=== PATIENT | male | born 1960 | race Caucasian/White ===

== ENCOUNTER 2020-04-04 07:42 | Inpatient (IN) | payer BC ==
[2020-04-04] MEDS ORDERED: Sodium Chloride 0.9% 10 ML Syringe FLUSH PRN (08:30)
[2020-04-04] MEDS ORDERED: Sodium Chloride 0.9% 2.5 ML Syringe FLUSH PRN (08:30)
[2020-04-04] MEDS ORDERED: ceFAZolin 2 GM in Premix Bag 1 BAG IV ONE (08:49)
[2020-04-04] MEDS ORDERED: Acetaminophen 500 MG Tab PO ONE (08:50)
[2020-04-04] MEDS ORDERED: oxyCODONE 5 MG Tab PO ONE (08:50)
--- NOTE | 2020-04-04 09:04 | EDM.PDOC ---
ED HPI GENERAL MEDICAL PROBLEM - General Chief Complaint: Lower Extremity Injury/Pain Stated Complaint: BLOOD INFECTION- RIGHT LEG Time Seen by Provider: 04/04/20 07:52 Source of Information: Reports: Patient, Old Records History Limitations: Reports: No Limitations - History of Present Illness INITIAL COMMENTS - FREE TEXT/NARRATIVE: This is a very pleasant 59-year-old male with a past medical history of diabetes mellitus, hypertension, hyperlipidemia, atrial fibrillation on rivaroxaban anticoagulation presenting with concern for possible skin infection. Patient reports a 4-day history of redness and pain to the anterior aspect of the right leg. This was preceded by 1 day history of fever, chills, nausea, vomiting, and myalgias. Patient states that he went to the [facility] where they prescribed him doxycycline. He has taken 5 doses of the doxycycline but states that the area of redness on his right leg is getting worse and spreading. He also reports having multiple pustules, 2 on the right hand, 2 on the left hand, and 2 on each of the legs. He states that he originally had some scratches and abrasions to these areas from his dog. They did not appear spontaneously. He states that he frequently picks at these areas and is concerned that they may be small abscesses. No prior history of endocarditis, IV drug use, or unknown heart murmur. Patient denies history of venous thromboembolism, hemoptysis, recent surgery or immobilization or long travel, history of active malignancy. ROS: A 10-point review of systems was negative, except as noted in the HPI (or in the ROS section of this note). Past medical history: Reviewed, no additional pertinent history. Surgical history: Reviewed in system, no additional pertinent history. Social history: Reviewed in system, no additional pertinent history. Family history: Reviewed in system, no additional pertinent history. PHYSICAL EXAM Vital signs reviewed. Nursing notes reviewed. Constitutional: Awake, alert, non-distressed. Head: Normocephalic, atraumatic. Eyes: EOMI, conjunctiva normal, no discharge, no scleral icterus. Ears, Nose, Throat: External ears and nose normal, moist oral mucosa. Cardiovascular: 2+ radial pulse, capillary refill less than 2 seconds. Pulmonary: normal work of breathing, no accessory muscle use. Abdomen/GI: Soft, nontender, nondistended, no guarding or rigidity, no masses. Musculoskeletal: No deformities. Integumentary: Appropriate color for ethnicity, warm, dry, no pallor or ja undice, no rash. The right lower leg demonstrates an area of erythema, warmth, and tenderness concerning for cellulitis. There are multiple small pustules, 2 on each leg and 2 on each hand, these appear to be draining spontaneously. Neurologic: Alert, answering questions appropriately, normal speech, no facial droop, moving all extremities well. Psychiatric: Appropriate mood and affect, normal thought process. This patient was seen and evaluated during the 2019 SARS-CoV-2 novel coronavirus pandemic period. Community viral transmission is ongoing at time of this encounter and the emergency department is operating under pandemic response procedures. Right Lower Leg Pain Score (Numeric/FACES): 10 - Related Data Allergies Allergy/AdvReac Type Severity Reaction Status Date / Time No Known Allergies Allergy Verified 04/04/20 12:38 Home Meds: Home Meds Amiodarone [Cordarone] 200 mg PO DAILY 04/04/20 [History] Chlorthalidone 1 tab PO DAILY 04/04/20 [History] Doxycycline Hyclate 1 tab PO DAILY 04/04/20 [History] Metoprolol Succinate 100 mg PO DAILY 04/04/20 [History] Rivaroxaban [Xarelto] 20 mg PO DAILY 04/04/20 [History] atorvaSTATin [Lipitor] 1 tab PO DAILY 04/04/20 [History] lisinopriL [Lisinopril] 40 mg PO DAILY 04/04/20 [History] metFORMIN HCl [Metformin HCl] 1,000 mg PO DAILY 04/04/20 [History] Past Medical History HEENT History: Reports: Cataract Cardiovascular History: Reports: Afib, Hypertension Musculoskeletal History: Reports: Arthritis Endocrine/Metabolic History: Reports: Diabetes, Type II, Obesity/BMI 30+ Dermatologic History: Reports: Cellulitis - Infectious Disease History Infectious Disease History: Reports: Chicken Pox, Influenza Social & Family History - Tobacco Use Tobacco Use Status *Q: Current Some Day Tobacco User Years of Tobacco use: 25 Packs/Tins Daily: 1 - Caffeine Use Caffeine Use: Reports: Coffee - Recreational Drug Use Recreational Drug Use: No Review of Systems - Review of Systems Review Of Systems: See Below ED EXAM, GENERAL - Physical Exam Exam: See Below Course - Vital Signs Text/Narrative:: 59-year-old male presenting with worsening right lower extremity redness, swelling, pain, and multiple pustules. Patient hemodynamically stable, afebrile, well-appearing, looks nontoxic. Differential diagnosis includes but is not limited to: Cellulitis, sepsis, DVT, multiple abscesses, endocarditis, and many others. 903: Ordered blood cultures, labs, Tylenol, oxycodone, IV antibiotics, and DVT ultrasound study of the right lower extremity. Anticipate admission to the hospital for worsening cellulitis symptoms. 1018: Right lower extremity DVT ultrasound study is negative. Labs show mild leukocytosis, normal hemoglobin, mild thrombocytopenia. INR and lactate are normal. Metabolic panel shows creatinine elevated at 2.0, no prior available for comparison. BUN to creatinine ratio suggests prerenal azotemia. Glucose 233 with normal carbon dioxide. AST and ALT mildly elevated at 45 and 72. Troponin is negative. Patient given p.o. acetaminophen and oxycodone, Ancef, vancomycin, 1 L lactated Ringer's. Given multiple pustules I was somewhat co ncerned for endocarditis but the patient states there is a history of antecedent wounds and I do not detect a cardiac murmur by auscultation. We did obtain blood cultures. 1111: Covid testing is negative. Given worsening of symptoms, patient will need to be admitted the hospital for outpatient treatment failure of right lower extremity cellulitis with elevated creatinine. I spoke with the hospitalist Dr. Vargas who agrees to admit. Last Recorded V/S: Last Vital Signs Temp 36.3 C 04/04/20 12:40 Pulse 63 04/04/20 12:40 Resp 18 04/04/20 12:40 BP 112/42 L 04/04/20 12:40 Pulse Ox 97 04/04/20 12:40 - Orders/Labs/Meds Orders: Active Orders 24 hr Category Date Time Status CULTURE BLOOD [BC] Stat Lab 04/04/20 08:30 Received CULTURE BLOOD [BC] Stat Lab 04/04/20 08:50 Received Blood Culture x2 Reflex Set [OM.PC] Stat Oth 04/04/20 08:30 Ordered Medication Orders Acetaminophen (Tylenol) 650 mg PO Q4H PRN PRN Reason: Pain (Mild 1-3)/fever Amiodarone HCl (Cordarone) 200 mg PO DAILY [facility] Atorvastatin Calcium (Lipitor) 20 mg PO DAILY [facility] Dextrose/Water (Dextrose 50% In Water) 50 ml IV ASDIRECTED PRN PRN Reason: Hypoglycemia Docusate Sodium (Colace) 100 mg PO BID PRN PRN Reason: Constipation Folic Acid (Folic Acid) 1 mg PO BEDTIME [facility] Glucagon (Glucagen) 1 mg IM ASDIRECTED PRN PRN Reason: Hypoglycemia Lactated Ringer's (Ringers, Lactated) 1,000 mls @ 125 mls/hr IV Q8H [facility] Last Admin: 04/04/20 12:58 Dose: 125 mls/hr Documented by: CELESTINAHR Vancomycin HCl 2 gm/ Premix 400 mls @ 200 mls/hr IV Q24H [facility] Piperacillin Sod/Tazobactam (Sod 3.375 gm/ Sodium Chloride) 100 mls @ 200 mls/hr IV Q6H [facility] Insulin Aspart (Novolog) 0 unit SUBCUT TIDAC [facility]; Protocol Last Admin: 04/04/20 13:12 Dose: 1 units Documented by: PREMA Lorazepam (Ativan) 0 mg IVPUSH Q4H PRN; Protocol PRN Reason: CIWAA Metoprolol Succinate (Toprol Xl) 100 mg PO DAILY [facility] Morphine Sulfate (Morphine) 2 mg IVPUSH Q2H PRN PRN Reason: Pain (severe 7-10) Ondansetron HCl (Zofran) 4 mg IVPUSH Q4H PRN PRN Reason: Nausea Oxycodone HCl (Oxycodone) 10 mg PO Q4H PRN PRN Reason: Pain (moderate 4-6) Last Admin: 04/04/20 13:13 Dose: 10 mg Documented by: PREMA Rivaroxaban (Xarelto) 20 mg PO WITHDINNER [facility] Sodium Chloride (Saline Flush) 2.5 ml FLUSH ASDIRECTED PRN PRN Reason: Keep Vein Open Thiamine HCl (Vitamin B-1) 100 mg PO BEDTIME [facility] Vancomycin HCl (Pharmacy To Dose - Vancomycin) 1 dose .XX ASDIRECTED [facility] Labs: Laboratory Tests 04/04/20 04/04/20 04/04/20 Range/Units 08:30 08:30 08:30 WBC 11.98 H (4.0-11.0) K/uL RBC 5.13 (4.50-5.90) M/uL Hgb 16.1 (13.0-17.0) g/dL Hct 47.3 (38.0-50.0) % MCV 92.2 (80.0-98.0) fL MCH 31.4 (27.0-32.0) pg MCHC 34.0 (31.0-37.0) g/dL RDW Std Deviation 43.5 (28.0-62.0) fl RDW Coeff of Hilda 13 (11.0-15.0) % Plt Count 138 L (150-400) K/uL MPV 10.30 (7.40-12.00) fL Neut % (Auto) 77.6 (48.0-80.0) % Lymph % (Auto) 10.9 L (16.0-40.0) % Wallace % (Auto) 11.0 (0.0-15.0) % Eos % (Auto) 0.4 (0.0-7.0) % Baso % (Auto) 0.1 (0.0-1.5) % Neut # (Auto) 9.3 H (1.4-5.7) K/uL Lymph # (Auto) 1.3 (0.6-2.4) K/uL Wallace # (Auto) 1.3 H (0.0-0.8) K/uL Eos # (Auto) 0.1 (0.0-0.7) K/uL Baso # (Auto) 0.0 (0.0-0.1) K/uL Nucleated RBC % 0.0 /100WBC Nucleated RBCs # 0 K/uL INR 1.10 Lactate 1.3 (0.20-2.00) mmol/L Sodium (136-148) mmol/L Potassium (3.5-5.1) mmol/L Chloride (98-107) mmol/L Carbon Dioxide (21.0-32.0) mmol/L BUN (7.0-18.0) mg/dL Creatinine (0.8-1.3) mg/dL Est Cr Clr Drug Dosing mL/min Estimated GFR (MDRD) ml/min Glucose (74-106) mg/dL Hemoglobin A1c (4.5 - 6.2) % Calcium (8.5-10.1) mg/dL Total Bilirubin (0.2-1.0) mg/dL AST (15-37) IU/L ALT (14-63) IU/L Alkaline Phosphatase (46-116) U/L Troponin I (0.000-0.056) ng/mL Total Protein (6.4-8.2) g/dL Albumin (3.4-5.0) g/dL Globulin (2.6-4.0) g/dL Albumin/Globulin Ratio (0.9-1.6) SARS-CoV-2 RNA (GIANLUCA) (NEGATIVE) 04/04/20 04/04/20 04/04/20 Range/Units 08:30 08:30 09:55 WBC (4.0-11.0) K/uL RBC (4.50-5.90) M/uL Hgb (13.0-17.0) g/dL Hct (38.0-50.0) % MCV (80.0-98.0) fL MCH (27.0-32.0) pg MCHC (31.0-37.0) g/dL RDW Std Deviation (28.0-62.0) fl RDW Coeff of Hilda (11.0-15.0) % Plt Count (150-400) K/uL MPV (7.40-12.00) fL Neut % (Auto) (48.0-80.0) % Lymph % (Auto) (16.0-40.0) % Wallace % (Auto) (0.0-15.0) % Eos % (Auto) (0.0-7.0) % Baso % (Auto) (0.0-1.5) % Neut # (Auto) (1.4-5.7) K/uL Lymph # (Auto) (0.6-2.4) K/uL Wallace # (Auto) (0.0-0.8) K/uL Eos # (Auto) (0.0-0.7) K/uL Baso # (Auto) (0.0-0.1) K/uL Nucleated RBC % /100WBC Nucleated RBCs # K/uL INR Lactate (0.20-2.00) mmol/L Sodium 135 L (136-148) mmol/L Potassium 3.8 (3.5-5.1) mmol/L Chloride 99 (98-107) mmol/L Carbon Dioxide 21.2 (21.0-32.0) mmol/L BUN 44 H (7.0-18.0) mg/dL Creatinine 2.0 H (0.8-1.3) mg/dL Est Cr Clr Drug Dosing 42.57 mL/min Estimated GFR (MDRD) 34.1 ml/min Glucose 233 H (74-106) mg/dL Hemoglobin A1c 7.3 H (4.5 - 6.2) % Calcium 9.7 (8.5-10.1) mg/dL Total Bilirubin 1.0 (0.2-1.0) mg/dL AST 45 H (15-37) IU/L ALT 72 H (14-63) IU/L Alkaline Phosphatase 94 (46-116) U/L Troponin I < 0.050 (0.000-0.056) ng/mL Total Protein 8.5 H (6.4-8.2) g/dL Albumin 3.4 (3.4-5.0) g/dL Globulin 5.1 H (2.6-4.0) g/dL Albumin/Globulin Ratio 0.7 L (0.9-1.6) SARS-CoV-2 RNA (GIANLUCA) NEGATIVE (NEGATIVE) Meds: Medications Generic Name Dose Route Start Last Admin Trade Name Freq PRN Reason Stop Dose Admin Acetaminophen 650 mg 04/04/20 12:30 Tylenol PO Q4H PRN Pain (Mild 1-3)/fever Amiodarone HCl 200 mg 04/05/20 09:00 Cordarone PO DAILY [facility] Atorvastatin Calcium 20 mg 04/05/20 09:00 Lipitor PO DAILY [facility] Dextrose/Water 50 ml 04/04/20 12:58 Dextrose 50% In Water IV ASDIRECTED PRN Hypoglycemia Docusate Sodium 100 mg 04/04/20 12:31 Colace PO BID PRN Constipation Folic Acid 1 mg 04/04/20 21:00 Folic Acid PO BEDTIME [facility] Glucagon 1 mg 04/04/20 12:58 Glucagen IM ASDIRECTED PRN Hypoglycemia Lactated Ringer's 1,000 mls @ 125 mls/hr 04/04/20 12:30 04/04/20 12:58 Ringers, Lactated IV 125 mls/hr Q8H [facility] Administration Vancomycin HCl 2 gm/ Premix 400 mls @ 200 mls/hr 04/05/20 13:15 IV Q24H [facility] Piperacillin Sod/Tazobactam 100 mls @ 200 mls/hr 04/04/20 15:00 Sod 3.375 gm/ Sodium Chloride IV Q6H [facility] Insulin Aspart 0 unit 04/04/20 12:59 04/04/20 13:12 Novolog SUBCUT 1 units TIDAC [facility] Administration Protocol Lorazepam 0 mg 04/04/20 12:58 Ativan IVPUSH Q4H PRN CIWAA Protocol Metoprolol Succinate 100 mg 04/05/20 09:00 Toprol Xl PO DAILY [facility] Morphine Sulfate 2 mg 04/04/20 12:30 Morphine IVPUSH Q2H PRN Pain (severe 7-10) Ondansetron HCl 4 mg 04/04/20 12:31 Zofran IVPUSH Q4H PRN Nausea Oxycodone HCl 10 mg 04/04/20 12:58 04/04/20 13:13 Oxycodone PO 10 mg Q4H PRN Administration Pain (moderate 4-6) Rivaroxaban 20 mg 04/05/20 17:30 Xarelto PO WITHDINNER [facility] Sodium Chloride 2.5 ml 04/04/20 12:30 Saline Flush FLUSH ASDIRECTED PRN Keep Vein Open Thiamine HCl 100 mg 04/04/20 21:00 Vitamin B-1 PO BEDTIME [facility] Vancomycin HCl 1 dose 04/04/20 12:45 Pharmacy To Dose - Vancomycin .XX ASDIRECTED [facility] Discontinued Medications Generic Name Dose Route Start Last Admin Trade Name Freq PRN Reason Stop Dose Admin Acetaminophen 1,000 mg 04/04/20 08:50 04/04/20 09:42 Tylenol Extra Strength PO 04/04/20 08:51 1,000 mg ONETIME ONE Administration Cefazolin Sodium/Dextrose 2 gm 50 mls @ 100 mls/hr 04/04/20 08:49 04/04/20 09:45 / Premix IV 04/04/20 09:18 100 mls/hr ONETIME ONE Administration Lactated Ringer's 1,000 mls @ 999 mls/hr 04/04/20 09:20 04/04/20 09:45 Ringers, Lactated IV 04/04/20 10:20 999 mls/hr .BOLUS ONE Administration Vancomycin HCl 2 gm/ Premix 400 mls @ 200 mls/hr 04/04/20 10:30 04/04/20 12:59 IV 04/04/20 12:29 200 mls/hr NOW ONE Administration Piperacillin Sod/Tazobactam 100 mls @ 200 mls/hr 04/04/20 12:45 04/04/20 14:08 Sod 3.375 gm/ Sodium Chloride IV Not Given Q6H [facility] Oxycodone HCl 10 mg 04/04/20 08:50 04/04/20 09:42 Oxycodone PO 04/04/20 08:51 10 mg ONETIME ONE Administration Oxycodone HCl 5 mg 04/04/20 12:30 Oxycodone PO Q4H PRN Pain (moderate 4-6) Sodium Chloride 10 ml 04/04/20 08:30 04/04/20 09:51 Saline Flush FLUSH 10 ml ASDIRECTED PRN Administration Keep Vein Open Sodium Chloride 2.5 ml 04/04/20 08:30 04/04/20 09:51 Saline Flush FLUSH 2.5 ml ASDIRECTED PRN Administration Keep Vein Open Vancomycin HCl 1 dose 04/04/20 08:49 Pharmacy To Dose - Vancomycin .XX 04/04/20 08:50 ONETIME ONE Departure - Departure Time of Disposition: 10:17 Disposition: Admitted As Inpatient 64 Condition: Good Clinical Impression: Cellulitis of right leg, Elevated serum creatinine - Discharge Information Sepsis Event Note (ED) - Evaluation Sepsis Screening Result: Possible Sepsis Risk - Focused Exam Vital Signs: Vital Signs Temp Pulse Resp BP Pulse Ox 04/04/20 08:08 35.1 C L 91 20 128/85 95 - My Orders Last 24 Hours: My Active Orders 04/04/20 08:30 CULTURE BLOOD [BC] Stat Blood Culture x2 Reflex Set [OM.PC] Stat 04/04/20 08:50 CULTURE BLOOD [BC] Stat - Assessment/Plan Last 24 Hours: My Active Orders 04/04/20 08:30 CULTURE BLOOD [BC] Stat Blood Culture x2 Reflex Set [OM.PC] Stat 04/04/20 08:50 CULTURE BLOOD [BC] Stat
[2020-04-04 09:16] LABS: BLOOD UREA NITROGEN,BUN 44 mg/dL (7.0-18.0); CARBON DIOXIDE,CO2 21.2 mmol/L (21.0-32.0); CHLORIDE,CL 99 mmol/L (98-107); GLUCOSE RANDOM 233 mg/dL (74-106); POTASSIUM,K 3.8 mmol/L (3.5-5.1); SODIUM,NA 135 mmol/L (136-148)
[2020-04-04] MEDS ORDERED: Lactated Ringers 1,000 ML IV ONE (09:20)
--- NOTE | 2020-04-04 10:08 | US ---
INDICATION: RT LOWER EXT REDNESS/SWELLING TECHNIQUE: Ultrasound venous duplex right lower extremity. COMPARISON: None. FINDINGS: The right common femoral, superficial femoral, deep femoral, popliteal, posterior tibial, and greater saphenous veins are fully compressible with normal waveforms. IMPRESSION: Normal ultrasound of the right lower extremity veins. Dictated by: Ector Washington MD @ 04/04/2020 10:06:24 (Electronically Signed)
[2020-04-04] MEDS ORDERED: VANCOMYCIN IV ONE ×4 (10:30→13:45)
[2020-04-04] MEDS ORDERED: WATER FOR INJ IV ONE ×4 (10:30→13:45)
[2020-04-04] MEDS ORDERED: Morphine 2 MG/ML SYRINGE IVPUSH PRN (12:30)
[2020-04-04] MEDS ORDERED: oxyCODONE 5 MG Tab PO PRN (12:30)
[2020-04-04] MEDS ORDERED: Acetaminophen 325 MG Tab PO PRN (12:30)
[2020-04-04] MEDS ORDERED: Docusate Sodium 100 MG Cap PO PRN (12:31)
[2020-04-04] MEDS ORDERED: Ondansetron 4 MG/2 ML SDV IVPUSH PRN (12:31)
--- NOTE | 2020-04-04 12:38 | PCM.HP.2 ---
H&P History of Present Illness - General Date of Service: 04/04/20 Admit Problem/Dx: Admission Diagnosis/Problem Admission Diagnosis/Problem Cellulitis Source of Information: Patient History Limitations: Reports: No Limitations - History of Present Illness Initial Comments - Free Text/Narative: This 59-year-old male with past medical history of HTN HLD diabetes type 2 atria l fibrillation post ablation and chronic anticoagulation presented to the ER with complaints of 4 days of red painful right lower extremity. He reports that he suddenly started having redness and pain to the back of his right leg. He reports he started having some generalized malaise chills no overt fevers. He did have loss of appetite. He was seen at a walk-in clinic in [facility] and treated with doxycycline on Thursday. He reports that he just continued to worsen at home with significant increase in pain. He denies any chest pain or shortness of breath. No headaches or neck pain. No abdominal pain. No diarrhea or constipation and no urinary symptoms. He reports that he has had many skin lesions over the last few days with abrasions to his right lower extremity as well as left hand and left elbow. He reports left elbow is slightly swollen but no significant pain. Small abrasion noted to the left elbow. He reports that these areas to his right hand did have some purulent drainage over the last couple days and now have been dried. He denies any recreational drug use. He reports alcohol use 2 to 3 days a week very vague on amount of use. He reports intermittent tobacco use. Reports he was septic secondary to pneumonia in 2018. He reports he had severe delirium. This is when his atrial fibrillation presented and has been on anticoagulation since. Reports he did have an ablation in February 2018. In the ER leukocytosis noted at 11,000, platelets 138,000. BUN 40 CR 2.0 glucose elevated at 233. Lactic acid 1.3. Covid swab in the ER was negative blood cultures obtained. Doppler of right lower extremity is negative for DVT. He was treated with Ancef and vancomycin in the ER. Vitals and stable in the ER no tachycardia or hypotension noted. He will be admitted inpatient for failed outpatient management of right lower extremity cellulitis. Right Lower Leg Pain Score (Numeric/FACES): 10 - Related Data Allergies/Adverse Reactions: Allergies Allergy/AdvReac Type Severity Reaction Status Date / Time No Known Allergies Allergy Verified 04/04/20 12:38 Home Medications: Home Meds Amiodarone [Cordarone] 200 mg PO DAILY 04/04/20 [History] Chlorthalidone 1 tab PO DAILY 04/04/20 [History] Doxycycline Hyclate 1 tab PO DAILY 04/04/20 [History] Metoprolol Succinate 100 mg PO DAILY 04/04/20 [History] Rivaroxaban [Xarelto] 20 mg PO DAILY 04/04/20 [History] atorvaSTATin [Lipitor] 1 tab PO DAILY 04/04/20 [History] lisinopriL [Lisinopril] 40 mg PO DAILY 04/04/20 [History] metFORMIN HCl [Metformin HCl] 1,000 mg PO DAILY 04/04/20 [History] Past Medical History HEENT History: Reports: Cataract Cardiovascular History: Reports: Afib, Hypertension Respiratory History: Reports: None. Denies: COPD Gastrointestinal History: Reports: None. Denies: GERD, GI Bleed Musculoskeletal History: Reports: Arthritis Endocrine/Metabolic History: Reports: Diabetes, Type II, Obesity/BMI 30+ Dermatologic History: Reports: Cellulitis - Infectious Disease History Infectious Disease History: Reports: Chicken Pox, Influenza Social & Family History - Tobacco Use Tobacco Use Status *Q: Current Some Day Tobacco User Years of Tobacco use: 25 Packs/Tins Daily: 1 - Caffeine Use Caffeine Use: Reports: Coffee - Alcohol Use Alcohol Use History: Yes Days Per Week of Alcohol Use: 3 - Recreational Drug Use Recreational Drug Use: No H&P Review of Systems - Review of Systems: Review Of Systems: See Below General: Reports: Chills, Malaise, Weakness HEENT: Reports: No Symptoms (Generalized). Denies: Headaches, Sinus Congestion, Vertigo Pulmonary: Reports: No Symptoms. Denies: Shortness of Breath Cardiovascular: Reports: No Symptoms. Denies: Chest Pain Gastrointestinal: Reports: No Symptoms. Denies: Abdominal Pain, Black Stool, Bloody Stool, Nausea, Vomiting Genitourinary: Reports: No Symptoms. Denies: Dysuria, Frequency Musculoskeletal: Reports: Leg Pain (Right lower extremity) Skin: Reports: Erythema, Wound (Multiple abrasions to the right hand left elbow and right lower extremity) Psychiatric: Reports: No Symptoms Neurological: Reports: No Symptoms Hematologic/Lymphatic: Reports: No Symptoms Immunologic: Reports: No Symptoms Exam - Exam Exam: See Below - Vital Signs Vital Signs: Last Vital Signs Temp 96.0 F L 04/04/20 12:04 Pulse 65 04/04/20 12:04 Resp 20 04/04/20 12:04 BP 112/42 L 04/04/20 12:04 Pulse Ox 95 04/04/20 12:04 Weight: 136.078 kg - Exam General: Alert, Oriented, Cooperative HEENT: Conjunctiva Clear, Mucosa Moist & [place], Posterior Pharynx Clear Lungs: Clear to Auscultation, Normal Respiratory Effort Cardiovascular: Regular Rate, Regular Rhythm GI/Abdominal Exam: Normal Bowel Sounds, Soft, Non-Tender Extremities: Normal Inspection, Normal Range of Motion, Non-Tender Neuro Extensive - Mental Status: Alert, Oriented x3 Neuro Extensive - Motor, Sensory, Reflexes: CN II-XII Intact, Normal Gait Psychiatric: Alert, Normal Affect, Normal Mood - Patient Data Lab Results Last 24 hrs: Laboratory Results - last 24 hr 04/04/20 04/04/20 04/04/20 Range/Units 08:30 08:30 08:30 WBC 11.98 H (4.0-11.0) K/uL RBC 5.13 (4.50-5.90) M/uL Hgb 16.1 (13.0-17.0) g/dL Hct 47.3 (38.0-50.0) % MCV 92.2 (80.0-98.0) fL MCH 31.4 (27.0-32.0) pg MCHC 34.0 (31.0-37.0) g/dL RDW Std Deviation 43.5 (28.0-62.0) fl RDW Coeff of Hilda 13 (11.0-15.0) % Plt Count 138 L (150-400) K/uL MPV 10.30 (7.40-12.00) fL Neut % (Auto) 77.6 (48.0-80.0) % Lymph % (Auto) 10.9 L (16.0-40.0) % Cameron % (Auto) 11.0 (0.0-15.0) % Eos % (Auto) 0.4 (0.0-7.0) % Baso % (Auto) 0.1 (0.0-1.5) % Neut # (Auto) 9.3 H (1.4-5.7) K/uL Lymph # (Auto) 1.3 (0.6-2.4) K/uL Cameron # (Auto) 1.3 H (0.0-0.8) K/uL Eos # (Auto) 0.1 (0.0-0.7) K/uL Baso # (Auto) 0.0 (0.0-0.1) K/uL Nucleated RBC % 0.0 /100WBC Nucleated RBCs # 0 K/uL INR 1.10 Lactate 1.3 (0.20-2.00) mmol/L Sodium (136-148) mmol/L Potassium (3.5-5.1) mmol/L Chloride (98-107) mmol/L Carbon Dioxide (21.0-32.0) mmol/L BUN (7.0-18.0) mg/dL Creatinine (0.8-1.3) mg/dL Est Cr Clr Drug Dosing mL/min Estimated GFR (MDRD) ml/min Glucose (74-106) mg/dL Calcium (8.5-10.1) mg/dL Total Bilirubin (0.2-1.0) mg/dL AST (15-37) IU/L ALT (14-63) IU/L Alkaline Phosphatase (46-116) U/L Troponin I (0.000-0.056) ng/mL Total Protein (6.4-8.2) g/dL Albumin (3.4-5.0) g/dL Globulin (2.6-4.0) g/dL Albumin/Globulin Ratio (0.9-1.6) SARS-CoV-2 RNA (GIANLUCA) (NEGATIVE) 04/04/20 04/04/20 Range/Units 08:30 09:55 WBC (4.0-11.0) K/uL RBC (4.50-5.90) M/uL Hgb (13.0-17.0) g/dL Hct (38.0-50.0) % MCV (80.0-98.0) fL MCH (27.0-32.0) pg MCHC (31.0-37.0) g/dL RDW Std Deviation (28.0-62.0) fl RDW Coeff of Hilda (11.0-15.0) % Plt Count (150-400) K/uL MPV (7.40-12.00) fL Neut % (Auto) (48.0-80.0) % Lymph % (Auto) (16.0-40.0) % Cameron % (Auto) (0.0-15.0) % Eos % (Auto) (0.0-7.0) % Baso % (Auto) (0.0-1.5) % Neut # (Auto) (1.4-5.7) K/uL Lymph # (Auto) (0.6-2.4) K/uL Cameron # (Auto) (0.0-0.8) K/uL Eos # (Auto) (0.0-0.7) K/uL Baso # (Auto) (0.0-0.1) K/uL Nucleated RBC % /100WBC Nucleated RBCs # K/uL INR Lactate (0.20-2.00) mmol/L Sodium 135 L (136-148) mmol/L Potassium 3.8 (3.5-5.1) mmol/L Chloride 99 (98-107) mmol/L Carbon Dioxide 21.2 (21.0-32.0) mmol/L BUN 44 H (7.0-18.0) mg/dL Creatinine 2.0 H (0.8-1.3) mg/dL Est Cr Clr Drug Dosing 42.57 mL/min Estimated GFR (MDRD) 34.1 ml/min Glucose 233 H (74-106) mg/dL Calcium 9.7 (8.5-10.1) mg/dL Total Bilirubin 1.0 (0.2-1.0) mg/dL AST 45 H (15-37) IU/L ALT 72 H (14-63) IU/L Alkaline Phosphatase 94 (46-116) U/L Troponin I < 0.050 (0.000-0.056) ng/mL Total Protein 8.5 H (6.4-8.2) g/dL Albumin 3.4 (3.4-5.0) g/dL Globulin 5.1 H (2.6-4.0) g/dL Albumin/Globulin Ratio 0.7 L (0.9-1.6) SARS-CoV-2 RNA (GIANLUCA) NEGATIVE (NEGATIVE) Result Diagrams: 04/04/20 08:30 04/04/20 08:30 Sepsis Event Note - Evaluation Sepsis Screening Result: Possible Sepsis Risk - Focused Exam Vital Signs: Vital Signs Temp Pulse Resp BP Pulse Ox 04/04/20 12:04 96.0 F L 65 20 112/42 L 95 04/04/20 08:08 95.2 F L 91 20 128/85 95 - Problem List (1) Cellulitis of right leg SNOMED Code(s): 137869715 ICD Code: L03.115 - CELLULITIS OF RIGHT LOWER LIMB Status: Acute Current Visit: Yes (2) HTN (hypertension) SNOMED Code(s): 18197754 ICD Code: I10 - ESSENTIAL (PRIMARY) HYPERTENSION Status: Chronic Current Visit: Yes Qualifiers: Hypertension type: essential hypertension Qualified Code(s): I10 - Essential (primary) hypertension (3) HLD (hyperlipidemia) SNOMED Code(s): 99083874 ICD Code: E78.5 - HYPERLIPIDEMIA, UNSPECIFIED Status: Chronic Current Visit: Yes (4) DM type 2 (diabetes mellitus, type 2) SNOMED Code(s): 69143841 ICD Code: E11.9 - TYPE 2 DIABETES MELLITUS WITHOUT COMPLICATIONS Status: Chronic Current Visit: Yes Qualifiers: Diabetes mellitus half-way insulin use: without half-way use (5) Atrial fibrillation SNOMED Code(s): 28042768 ICD Code: I48.91 - UNSPECIFIED ATRIAL FIBRILLATION Status: Chronic Current Visit: Yes (6) Chronic anticoagulation SNOMED Code(s): 690074912 ICD Code: Z79.01 - FPC (CURRENT) USE OF ANTICOAGULANTS Status: Chronic Current Visit: Yes (7) Obesity SNOMED Code(s): 302091939, 203177383 ICD Code: E66.9 - OBESITY, UNSPECIFIED Status: Chronic Current Visit: Yes (8) Tobacco abuse SNOMED Code(s): 992069347 ICD Code: Z72.0 - TOBACCO USE Status: Chronic Current Visit: Yes (9) Alcohol use SNOMED Code(s): 436974 ICD Code: Z72.89 - OTHER PROBLEMS RELATED TO LIFESTYLE Status: Chronic Current Visit: Yes (10) Elevated serum creatinine SNOMED Code(s): 801546611 ICD Code: R79.89 - OTHER SPECIFIED ABNORMAL FINDINGS OF BLOOD CHEMISTRY Status: Acute Current Visit: Yes Problem List Initiated/Reviewed/Updated: Yes Orders Last 24hrs: Active Orders 24 hr Category Date Time Status Admission Status [Patient Status] [ADT] Stat ADT 04/04/20 11:15 Active Intake and Output [RC] QSHIFT Care 04/04/20 12:30 Active Oxygen Therapy [RC] PRN Care 04/04/20 12:30 Active Up to Chair [RC] ASDIRECTED Care 04/04/20 12:30 Active VTE/DVT Education [RC] PER UNIT ROUTINE Care 04/04/20 12:30 Active Vital Signs [RC] Q4H Care 04/04/20 12:30 Active [place] [employer] Diet [DIET] Diet 04/04/20 Lunch Active CBC WITH AUTO DIFF [HEME] AM Lab 04/05/20 05:11 Ordered CBC WITH AUTO DIFF [HEME] AM Lab 04/06/20 05:11 Ordered CBC WITH AUTO DIFF [HEME] AM Lab 04/07/20 05:11 Ordered COMPREHENSIVE METABOLIC PN,CMP [CHEM] AM Lab 04/05/20 05:11 Ordered COMPREHENSIVE METABOLIC PN,CMP [CHEM] AM Lab 04/06/20 05:11 Ordered COMPREHENSIVE METABOLIC PN,CMP [CHEM] AM Lab 04/07/20 05:11 Ordered CULTURE BLOOD [BC] Stat Lab 04/04/20 08:30 Received CULTURE BLOOD [BC] Stat Lab 04/04/20 08:50 Received MAGNESIUM [CHEM] AM Lab 04/05/20 05:11 Ordered MAGNESIUM [CHEM] AM Lab 04/06/20 05:11 Ordered MAGNESIUM [CHEM] AM Lab 04/07/20 05:11 Ordered Acetaminophen [TylenoL] Med 04/04/20 12:30 Ordered 650 mg PO Q4H PRN Docusate Sodium [Colace] Med 04/04/20 12:31 Ordered 100 mg PO BID PRN Lactated Ringers [Ringers, Lactated] 1,000 ml Med 04/04/20 12:30 Ordered IV Q8H Morphine Med 04/04/20 12:30 Ordered 2 mg IVPUSH Q2H PRN Ondansetron [Zofran] Med 04/04/20 12:31 Ordered 4 mg IVPUSH Q4H PRN Pharmacy to Dose - Vancomycin Med 04/04/20 12:45 Ordered 1 dose .XX ASDIRECTED Piperacillin/Tazobactam [Piperacil-Tazobact] 3.375 gm Med 04/04/20 12:45 Ordered Sodium Chloride 0.9% [Normal Saline] 50 ml IV Q6H Sodium Chloride 0.9% [Saline Flush] Med 04/04/20 12:30 Ordered 2.5 ml FLUSH ASDIRECTED PRN oxyCODONE Med 04/04/20 12:30 Ordered 5 mg PO Q4H PRN Blood Culture x2 Reflex Set [OM.PC] Stat Ot 04/04/20 08:30 Ordered Saline Lock Insert [OM.PC] Routine Oth 04/04/20 12:30 Ordered Saline Lock Insert [OM.PC] Stat Ot 04/04/20 08:30 Ordered Resuscitation Status Routine Resus Stat 04/04/20 12:30 Ordered Medication Orders Acetaminophen (Tylenol) 650 mg PO Q4H PRN PRN Reason: Pain (Mild 1-3)/fever Docusate Sodium (Colace) 100 mg PO BID PRN PRN Reason: Constipation Lactated Ringer's (Ringers, Lactated) 1,000 mls @ 125 mls/hr IV Q8H BRENDAN Piperacillin Sod/Tazobactam (Sod 3.375 gm/ Sodium Chloride) 50 mls @ 100 mls/hr IV Q6H BRENDAN Morphine Sulfate (Morphine) 2 mg IVPUSH Q2H PRN PRN Reason: Pain (severe 7-10) Ondansetron HCl (Zofran) 4 mg IVPUSH Q4H PRN PRN Reason: Nausea Oxycodone HCl (Oxycodone) 5 mg PO Q4H PRN PRN Reason: Pain (moderate 4-6) Sodium Chloride (Saline Flush) 2.5 ml FLUSH ASDIRECTED PRN PRN Reason: Keep Vein Open Vancomycin HCl (Pharmacy To Dose - Vancomycin) 1 dose .XX ASDIRECTED [facility] Assessment/Plan Comment:: This 59-year-old male admitted with right lower leg cellulitis 1. Right lower leg cellulitis -Increase coverage to include Pseudomonas due to being diabetic -Continue vancomycin -Blood cultures pending -Elevate extremity as much as possible -We will obtain CT scan of the right lower extremity today -Oxycodone and morphine as needed pain to. -Obtain x-ray of left elbow likely bursitis. 2. CHRISTOPHER -We will check for baseline BUN and creatinine -Hold lisinopril for now -IV fluids LR at 125 3. DM type II -NovoLog sliding scale insulin -Monitor blood sugars 3 times daily AC -Obtain A1c -Hold Metformin 4. HTN/atrial fibrillation -Continue metoprolol, amiodarone -Hold chlorthalidone and lisinopril due to CHRISTOPHER -No history of CHF -Continue Xarelto 5. Alcohol use -Reports 2-3 times per week -CIWAA assessment with Ativan protocol as needed -Thiamine and folic acid VTE prophylaxis: Xarelto CODE STATUS: Full code Dispo: 2 to 3 days pending improvement - Mortality Measure Prognosis:: Good
[2020-04-04] MEDS ORDERED: Piperacillin/Tazobactam 3.375 GM in Sodium Chloride 0.9% 100 ML IV SCH (12:45)
[2020-04-04] MEDS ORDERED: 50% Dextrose in Water 50 ML Syringe IV PRN (12:58)
[2020-04-04] MEDS ORDERED: LORazepam 2 MG/ML SDV IVPUSH PRN (12:58)
[2020-04-04] MEDS: Lactated Ringers 1,000 ML IV SCH (12:58)
[2020-04-04] MEDS ORDERED: Glucagon,Human Recombinant 1 MG Vial IM PRN (12:58)
[2020-04-04] MEDS: Insulin Aspart 100 Units/ML 3 ML Pen SUBCUT SCH ×2 (13:12→18:21)
[2020-04-04] MEDS: oxyCODONE 5 MG Tab PO PRN ×2 (13:13→18:20)
--- NOTE | 2020-04-04 13:48 | CR ---
Indication: Swelling and bursitis Comparison: None available. Technique: AP amd lateral views left elbow were obtained Findings: There is no displaced fracture or dislocation. There is mild hepatic changes at the insertion of the triceps tendon. There is mild proximal soft tissue swelling adjacent to the ulna. The soft tissues are otherwise unremarkable. Impression: Mild proximal ulnar soft tissue swelling without evidence of underlying fracture. The olecranon bursa appears grossly non inflamed. Dictated by Oskar Bolaños MD @ Apr 04 2020 1:45PM Signed by Dr. Oskar Bolaños @ Apr 04 2020 1:46PM
[2020-04-04 14:02] LABS: HEMOGLOBIN A1C 7.3 %
[2020-04-04] MEDS: Piperacillin/Tazobactam 3.375 GM in Sodium Chloride 0.9% 100 ML IV SCH ×2 (15:30→21:33)
--- NOTE | 2020-04-04 17:46 | CT ---
HISTORY: Right lower extremity cellulitis. TECHNIQUE: Intravenous contrast enhanced CT of the right lower leg. 100 mL of Isovue-370 intravenous contrast administered. COMPARISON: Ultrasound 04/04/2020. FINDINGS: There is infiltration of the subcutaneous tissues related to edema and/or cellulitis. No well-defined subcutaneous fluid collection. No soft tissue gas. No bony destructive change to suggest acute osteomyelitis. Small popliteal cyst. Bipartite patella. Degenerative arthrosis of the knee. Ankle joint degenerative changes. Os trigonum. Ossicles distal to the medial malleolus appear corticated and chronic. Extensive vascular calcifications. IMPRESSION: 1. Infiltration of the subcutaneous tissues reflecting edema and/or cellulitis. 2. No localized subcutaneous fluid collection or soft tissue gas. 3. No bony destructive change specific for acute osteomyelitis. Please note that all CT scans at this facility use dose modulation, iterative reconstruction, and/or weight-based dosing when appropriate to reduce radiation dose to as low as reasonably achievable. Dictated by Agustin Uribe MD @ Apr 05 2020 7:08AM Signed by Dr. Agustin Uribe @ Apr 05 2020 7:10AM
[2020-04-04] MEDS ORDERED: Iopamidol 755 MG/ML 500 ML Multipack Bottle IVPUSH STA (19:06)
[2020-04-04] MEDS: Folic Acid 1 MG Tab PO SCH (21:31)
[2020-04-04] MEDS: Thiamine 100 MG Tab PO SCH (21:33)
[2020-04-04] MEDS: Sodium Chloride 0.9% 2.5 ML Syringe FLUSH PRN (21:33)
[2020-04-05] MEDS: Piperacillin/Tazobactam 3.375 GM in Sodium Chloride 0.9% 100 ML IV SCH ×3 (02:39→18:03)
[2020-04-05] MEDS: Lactated Ringers 1,000 ML IV SCH ×4 (05:31→20:00)
[2020-04-05 06:34] LABS: POTASSIUM,K 3.5 mmol/L (3.5-5.1)
--- NOTE | 2020-04-05 08:01 | PCM.PN ---
- General Info Date of Service: 04/05/20 Admission Dx/Problem (Free Text): Admission Diagnosis/Problem Admission Diagnosis/Problem Cellulitis Subjective Update: Reports continued pain overnight to his right lower extremity. Overall feels may be mildly improved. No chest pain or shortness of breath. Reports elbow looks more red and swollen but pain is not increased and there is no pain with movement. Functional Status: Reports: Pain Controlled, Tolerating Diet, Ambulating, Urinating - Review of Systems General: Reports: Malaise HEENT: Reports: No Symptoms. Denies: Headaches, Visual Changes Pulmonary: Reports: No Symptoms. Denies: Shortness of Breath Cardiovascular: Reports: No Symptoms. Denies: Chest Pain Gastrointestinal: Reports: No Symptoms. Denies: Abdominal Pain, Nausea, Vomiting Genitourinary: Reports: No Symptoms. Denies: Dysuria, Frequency Musculoskeletal: Reports: Leg Pain (Right lower extremity), Other (Mild swelling circumferentially to left elbow) Skin: Reports: No Symptoms Neurological: Reports: No Symptoms Psychiatric: Reports: No Symptoms - Patient Data Vitals - Most Recent: Last Vital Signs Temp 98.2 F 04/05/20 03:51 Pulse 96 04/05/20 03:51 Resp 19 04/05/20 03:51 BP 167/78 H 04/05/20 03:51 Pulse Ox 92 L 04/05/20 03:51 Weight - Most Recent: 133.764 kg I&O - Last 24 Hours: Intake & Output 04/04/20 04/05/20 04/05/20 22:59 06:59 14:59 Intake Total 600 1500 Output Total 350 1225 Balance 250 275 Lab Results Last 24 Hours: Laboratory Results - last 24 hr 04/04/20 04/04/20 04/04/20 Range/Units 08:30 08:30 08:30 WBC 11.98 H (4.0-11.0) K/uL RBC 5.13 (4.50-5.90) M/uL Hgb 16.1 (13.0-17.0) g/dL Hct 47.3 (38.0-50.0) % MCV 92.2 (80.0-98.0) fL MCH 31.4 (27.0-32.0) pg MCHC 34.0 (31.0-37.0) g/dL RDW Std Deviation 43.5 (28.0-62.0) fl RDW Coeff of Hilda 13 (11.0-15.0) % Plt Count 138 L (150-400) K/uL MPV 10.30 (7.40-12.00) fL Neut % (Auto) 77.6 (48.0-80.0) % Lymph % (Auto) 10.9 L (16.0-40.0) % [place] % (Auto) 11.0 (0.0-15.0) % Eos % (Auto) 0.4 (0.0-7.0) % Baso % (Auto) 0.1 (0.0-1.5) % Neut # (Auto) 9.3 H (1.4-5.7) K/uL Lymph # (Auto) 1.3 (0.6-2.4) K/uL [place] # (Auto) 1.3 H (0.0-0.8) K/uL Eos # (Auto) 0.1 (0.0-0.7) K/uL Baso # (Auto) 0.0 (0.0-0.1) K/uL Nucleated RBC % 0.0 /100WBC Nucleated RBCs # 0 K/uL INR 1.10 Lactate 1.3 (0.20-2.00) mmol/L Sodium (136-148) mmol/L Potassium (3.5-5.1) mmol/L Chloride (98-107) mmol/L Carbon Dioxide (21.0-32.0) mmol/L BUN (7.0-18.0) mg/dL Creatinine (0.8-1.3) mg/dL Est Cr Clr Drug Dosing mL/min Estimated GFR (MDRD) ml/min Glucose (74-106) mg/dL POC Glucose (60-110) mg/dL Hemoglobin A1c (4.5 - 6.2) % Calcium (8.5-10.1) mg/dL Magnesium (1.8-2.4) mg/dL Total Bilirubin (0.2-1.0) mg/dL AST (15-37) IU/L ALT (14-63) IU/L Alkaline Phosphatase (46-116) U/L Troponin I (0.000-0.056) ng/mL Total Protein (6.4-8.2) g/dL Albumin (3.4-5.0) g/dL Globulin (2.6-4.0) g/dL Albumin/Globulin Ratio (0.9-1.6) SARS-CoV-2 RNA (GIANLUCA) (NEGATIVE) 04/04/20 04/04/20 04/04/20 Range/Units 08:30 08:30 09:55 WBC (4.0-11.0) K/uL RBC (4.50-5.90) M/uL Hgb (13.0-17.0) g/dL Hct (38.0-50.0) % MCV (80.0-98.0) fL MCH (27.0-32.0) pg MCHC (31.0-37.0) g/dL RDW Std Deviation (28.0-62.0) fl RDW Coeff of Hilda (11.0-15.0) % Plt Count (150-400) K/uL MPV (7.40-12.00) fL Neut % (Auto) (48.0-80.0) % Lymph % (Auto) (16.0-40.0) % [place] % (Auto) (0.0-15.0) % Eos % (Auto) (0.0-7.0) % Baso % (Auto) (0.0-1.5) % Neut # (Auto) (1.4-5.7) K/uL Lymph # (Auto) (0.6-2.4) K/uL [place] # (Auto) (0.0-0.8) K/uL Eos # (Auto) (0.0-0.7) K/uL Baso # (Auto) (0.0-0.1) K/uL Nucleated RBC % /100WBC Nucleated RBCs # K/uL INR Lactate (0.20-2.00) mmol/L Sodium 135 L (136-148) mmol/L Potassium 3.8 (3.5-5.1) mmol/L Chloride 99 (98-107) mmol/L Carbon Dioxide 21.2 (21.0-32.0) mmol/L BUN 44 H (7.0-18.0) mg/dL Creatinine 2.0 H (0.8-1.3) mg/dL Est Cr Clr Drug Dosing 42.57 mL/min Estimated GFR (MDRD) 34.1 ml/min Glucose 233 H (74-106) mg/dL POC Glucose (60-110) mg/dL Hemoglobin A1c 7.3 H (4.5 - 6.2) % Calcium 9.7 (8.5-10.1) mg/dL Magnesium (1.8-2.4) mg/dL Total Bilirubin 1.0 (0.2-1.0) mg/dL AST 45 H (15-37) IU/L ALT 72 H (14-63) IU/L Alkaline Phosphatase 94 (46-116) U/L Troponin I < 0.050 (0.000-0.056) ng/mL Total Protein 8.5 H (6.4-8.2) g/dL Albumin 3.4 (3.4-5.0) g/dL Globulin 5.1 H (2.6-4.0) g/dL Albumin/Globulin Ratio 0.7 L (0.9-1.6) SARS-CoV-2 RNA (GIANLUCA) NEGATIVE (NEGATIVE) 04/04/20 04/04/20 04/05/20 Range/Units 12:57 17:04 04:58 WBC 11.39 H (4.0-11.0) K/uL RBC 4.49 L (4.50-5.90) M/uL Hgb 14.0 (13.0-17.0) g/dL Hct 41.3 (38.0-50.0) % MCV 92.0 (80.0-98.0) fL MCH 31.2 (27.0-32.0) pg MCHC 33.9 (31.0-37.0) g/dL RDW Std Deviation 43.5 (28.0-62.0) fl RDW Coeff of Hilda 13 (11.0-15.0) % Plt Count 111 L (150-400) K/uL MPV 10.30 (7.40-12.00) fL Neut % (Auto) 80.1 H (48.0-80.0) % Lymph % (Auto) 9.7 L (16.0-40.0) % [place] % (Auto) 10.0 (0.0-15.0) % Eos % (Auto) 0.1 (0.0-7.0) % Baso % (Auto) 0.1 (0.0-1.5) % Neut # (Auto) 9.1 H (1.4-5.7) K/uL Lymph # (Auto) 1.1 (0.6-2.4) K/uL [place] # (Auto) 1.1 H (0.0-0.8) K/uL Eos # (Auto) 0.0 (0.0-0.7) K/uL Baso # (Auto) 0.0 (0.0-0.1) K/uL Nucleated RBC % 0.0 /100WBC Nucleated RBCs # 0 K/uL INR Lactate (0.20-2.00) mmol/L Sodium (136-148) mmol/L Potassium (3.5-5.1) mmol/L Chloride (98-107) mmol/L Carbon Dioxide (21.0-32.0) mmol/L BUN (7.0-18.0) mg/dL Creatinine (0.8-1.3) mg/dL Est Cr Clr Drug Dosing mL/min Estimated GFR (MDRD) ml/min Glucose (74-106) mg/dL POC Glucose 184 H 242 H (60-110) mg/dL Hemoglobin A1c (4.5 - 6.2) % Calcium (8.5-10.1) mg/dL Magnesium (1.8-2.4) mg/dL Total Bilirubin (0.2-1.0) mg/dL AST (15-37) IU/L ALT (14-63) IU/L Alkaline Phosphatase (46-116) U/L Troponin I (0.000-0.056) ng/mL Total Protein (6.4-8.2) g/dL Albumin (3.4-5.0) g/dL Globulin (2.6-4.0) g/dL Albumin/Globulin Ratio (0.9-1.6) SARS-CoV-2 RNA (GIANLUCA) (NEGATIVE) 04/05/20 04/05/20 Range/Units 04:58 05:48 WBC (4.0-11.0) K/uL RBC (4.50-5.90) M/uL Hgb (13.0-17.0) g/dL Hct (38.0-50.0) % MCV (80.0-98.0) fL MCH (27.0-32.0) pg MCHC (31.0-37.0) g/dL RDW Std Deviation (28.0-62.0) fl RDW Coeff of Hilda (11.0-15.0) % Plt Count (150-400) K/uL MPV (7.40-12.00) fL Neut % (Auto) (48.0-80.0) % Lymph % (Auto) (16.0-40.0) % [place] % (Auto) (0.0-15.0) % Eos % (Auto) (0.0-7.0) % Baso % (Auto) (0.0-1.5) % Neut # (Auto) (1.4-5.7) K/uL Lymph # (Auto) (0.6-2.4) K/uL [place] # (Auto) (0.0-0.8) K/uL Eos # (Auto) (0.0-0.7) K/uL Baso # (Auto) (0.0-0.1) K/uL Nucleated RBC % /100WBC Nucleated RBCs # K/uL INR Lactate (0.20-2.00) mmol/L Sodium 135 L (136-148) mmol/L Potassium 3.5 (3.5-5.1) mmol/L Chloride 99 (98-107) mmol/L Carbon Dioxide 23.0 (21.0-32.0) mmol/L BUN 38 H (7.0-18.0) mg/dL Creatinine 1.6 H (0.8-1.3) mg/dL Est Cr Clr Drug Dosing 53.22 mL/min Estimated GFR (MDRD) 44.2 ml/min Glucose 213 H (74-106) mg/dL POC Glucose 234 H (60-110) mg/dL Hemoglobin A1c (4.5 - 6.2) % Calcium 9.2 (8.5-10.1) mg/dL Magnesium 1.4 L (1.8-2.4) mg/dL Total Bilirubin 1.3 H (0.2-1.0) mg/dL AST 28 (15-37) IU/L ALT 61 (14-63) IU/L Alkaline Phosphatase 86 (46-116) U/L Troponin I (0.000-0.056) ng/mL Total Protein 7.3 (6.4-8.2) g/dL Albumin 2.8 L (3.4-5.0) g/dL Globulin 4.5 H (2.6-4.0) g/dL Albumin/Globulin Ratio 0.6 L (0.9-1.6) SARS-CoV-2 RNA (GIANLUCA) (NEGATIVE) Med Orders - Current: Current Medications Acetaminophen (Tylenol) 650 mg PO Q4H PRN PRN Reason: Pain (Mild 1-3)/fever Last Admin: 04/04/20 21:32 Dose: 650 mg Documented by: Amiodarone HCl (Cordarone) 200 mg PO DAILY [facility] Atorvastatin Calcium (Lipitor) 20 mg PO DAILY [facility] Dextrose/Water (Dextrose 50% In Water) 50 ml IV ASDIRECTED PRN PRN Reason: Hypoglycemia Docusate Sodium (Colace) 100 mg PO BID PRN PRN Reason: Constipation Folic Acid (Folic Acid) 1 mg PO BEDTIME [facility] Last Admin: 04/04/20 21:31 Dose: 1 mg Documented by: Glucagon (Glucagen) 1 mg IM ASDIRECTED PRN PRN Reason: Hypoglycemia Lactated Ringer's (Ringers, Lactated) 1,000 mls @ 125 mls/hr IV Q8H [facility] Last Admin: 04/05/20 05:32 Dose: 125 mls/hr Documented by: Vancomycin HCl 2 gm/ Premix 400 mls @ 200 mls/hr IV Q12H [facility] Piperacillin Sod/Tazobactam (Sod 3.375 gm/ Sodium Chloride) 100 mls @ 200 mls/hr IV Q6H [facility] Last Admin: 04/05/20 02:39 Dose: 200 mls/hr Documented by: Insulin Aspart (Novolog) 0 unit SUBCUT TIDAC [facility]; Protocol Last Admin: 04/04/20 18:21 Dose: 2 units Documented by: Lorazepam (Ativan) 0 mg IVPUSH Q4H PRN; Protocol PRN Reason: CIWAA Metoprolol Succinate (Toprol Xl) 100 mg PO DAILY [facility] Morphine Sulfate (Morphine) 2 mg IVPUSH Q2H PRN PRN Reason: Pain (severe 7-10) Ondansetron HCl (Zofran) 4 mg IVPUSH Q4H PRN PRN Reason: Nausea Oxycodone HCl (Oxycodone) 10 mg PO Q4H PRN PRN Reason: Pain (moderate 4-6) Last Admin: 04/04/20 18:20 Dose: 10 mg Documented by: Rivaroxaban (Xarelto) 20 mg PO WITHMILADIS [facility] Sodium Chloride (Saline Flush) 2.5 ml FLUSH ASDIRECTED PRN PRN Reason: Keep Vein Open Last Admin: 04/04/20 21:33 Dose: 2.5 ml Documented by: Thiamine HCl (Vitamin B-1) 100 mg PO BEDTIME [facility] Last Admin: 04/04/20 21:33 Dose: 100 mg Documented by: Vancomycin HCl (Pharmacy To Dose - Vancomycin) 1 dose .XX ASDIRECTED BRENDAN Discontinued Medications Acetaminophen (Tylenol Extra Strength) 1,000 mg PO ONETIME ONE Stop: 04/04/20 08:51 Last Admin: 04/04/20 09:42 Dose: 1,000 mg Documented by: Cefazolin Sodium/Dextrose 2 gm (/ Premix) 50 mls @ 100 mls/hr IV ONETIME ONE Stop: 04/04/20 09:18 Last Admin: 04/04/20 09:45 Dose: 100 mls/hr Documented by: Lactated Ringer's (Ringers, Lactated) 1,000 mls @ 999 mls/hr IV .BOLUS ONE Stop: 04/04/20 10:20 Last Admin: 04/04/20 09:45 Dose: 999 mls/hr Documented by: Vancomycin HCl 2 gm/ Premix 400 mls @ 200 mls/hr IV NOW ONE Stop: 04/04/20 12:29 Last Admin: 04/04/20 12:59 Dose: 200 mls/hr Documented by: Piperacillin Sod/Tazobactam (Sod 3.375 gm/ Sodium Chloride) 100 mls @ 200 mls/hr IV Q6H [facility] Last Admin: 04/04/20 14:08 Dose: Not Given Documented by: Iopamidol (Isovue Multipack-370 (76%)) 100 ml IVPUSH ONETIME STA Stop: 04/04/20 19:07 Last Admin: 04/04/20 19:07 Dose: 100 ml Documented by: Oxycodone HCl (Oxycodone) 10 mg PO ONETIME ONE Stop: 04/04/20 08:51 Last Admin: 04/04/20 09:42 Dose: 10 mg Documented by: Oxycodone HCl (Oxycodone) 5 mg PO Q4H PRN PRN Reason: Pain (moderate 4-6) Sodium Chloride (Saline Flush) 10 ml FLUSH ASDIRECTED PRN PRN Reason: Keep Vein Open Last Admin: 04/04/20 09:51 Dose: 10 ml Documented by: Sodium Chloride (Saline Flush) 2.5 ml FLUSH ASDIRECTED PRN PRN Reason: Keep Vein Open Last Admin: 04/04/20 09:51 Dose: 2.5 ml Documented by: Vancomycin HCl (Pharmacy To Dose - Vancomycin) 1 dose .XX ONETIME ONE Stop: 04/04/20 08:50 Last Admin: 04/05/20 02:40 Dose: Not Given Documented by: - Exam Quality Assessment: DVT Prophylaxis General: Alert, Oriented, Cooperative, No Acute Distress Lungs: Clear to Auscultation, Normal Respiratory Effort Cardiovascular: Regular Rate, Regular Rhythm GI/Abdominal Exam: Normal Bowel Sounds, Soft, Non-Tender Extremities: Normal Inspection, Normal Range of Motion, Redness (Erythema noted to right lower calf with some spreading up medial right thigh. No open areas and no drainage noted. Area continues to feel hot. Erythema also noted surrounding left elbow. Yesterday more inflammation to bursa noted today bursa feels less fluctuant more induration and cellulitis noted surrounding left elbow. No pain with movement of joint or palpation of the erythematous areas.) Skin: Warm, Dry Wound/Incisions: No Drainage, Erythema, Other (Continues to have multiple areas of open abrasions that are in various stages of healing. No active drainage from the sites.) Psy/Mental Status: Alert, Normal Affect, Normal Mood Sepsis Event Note - Evaluation Sepsis Screening Result: No Definite Risk - Focused Exam Vital Signs: Vital Signs Temp Temp Pulse Resp BP Pulse Ox 04/05/20 03:51 98.2 F 96 19 167/78 H 92 L 04/04/20 23:59 99.2 F 82 20 129/67 92 L 04/04/20 21:32 99.9 F 04/04/20 20:10 99.7 F 112 H 18 160/87 H 92 L - Problem List & Annotations (1) Cellulitis of right leg SNOMED Code(s): 535199139 Code(s): L03.115 - CELLULITIS OF RIGHT LOWER LIMB Status: Acute Current Visit: Yes (2) HTN (hypertension) SNOMED Code(s): 06837646 Code(s): I10 - ESSENTIAL (PRIMARY) HYPERTENSION Status: Chronic Current Visit: Yes Qualifiers: Hypertension type: essential hypertension Qualified Code(s): I10 - Essential (primary) hypertension (3) HLD (hyperlipidemia) SNOMED Code(s): 54875004 Code(s): E78.5 - HYPERLIPIDEMIA, UNSPECIFIED Status: Chronic Current Visit: Yes (4) DM type 2 (diabetes mellitus, type 2) SNOMED Code(s): 86170538 Code(s): E11.9 - TYPE 2 DIABETES MELLITUS WITHOUT COMPLICATIONS Status: Chronic Current Visit: Yes Qualifiers: Diabetes mellitus buttermaker helper insulin use: without buttermaker helper use (5) Atrial fibrillation SNOMED Code(s): 91856529 Code(s): I48.91 - UNSPECIFIED ATRIAL FIBRILLATION Status: Chronic Current Visit: Yes (6) Chronic anticoagulation SNOMED Code(s): 973657340 Code(s): Z79.01 - SKILLED NURSING (CURRENT) USE OF ANTICOAGULANTS Status: Chronic Current Visit: Yes (7) Obesity SNOMED Code(s): 547759575, 106714502 Code(s): E66.9 - OBESITY, UNSPECIFIED Status: Chronic Current Visit: Yes (8) Tobacco abuse SNOMED Code(s): 368139957 Code(s): Z72.0 - TOBACCO USE Status: Chronic Current Visit: Yes (9) Alcohol use SNOMED Code(s): 858399 Code(s): Z72.89 - OTHER PROBLEMS RELATED TO LIFESTYLE Status: Chronic Current Visit: Yes (10) Elevated serum creatinine SNOMED Code(s): 109728915 Code(s): R79.89 - OTHER SPECIFIED ABNORMAL FINDINGS OF BLOOD CHEMISTRY Status: Acute Current Visit: Yes - Problem List Review Problem List Initiated/Reviewed/Updated: Yes - My Orders Last 24 Hours: My Active Orders 04/04/20 Lunch [place] [employer] Diet [DIET] 04/04/20 12:30 Intake and Output [RC] Q12H Oxygen Therapy [RC] PRN Up to Chair [RC] ASDIRECTED VTE/DVT Education [RC] PER UNIT ROUTINE Vital Signs [RC] Q4H Acetaminophen [TylenoL] 650 mg PO Q4H PRN Lactated Ringers [Ringers, Lactated] 1,000 ml IV Q8H Morphine 2 mg IVPUSH Q2H PRN Sodium Chloride 0.9% [Saline Flush] 2.5 ml FLUSH ASDIRECTED PRN Saline Lock Insert [OM.PC] Routine Resuscitation Status Routine 04/04/20 12:31 Docusate Sodium [Colace] 100 mg PO BID PRN Ondansetron [Zofran] 4 mg IVPUSH Q4H PRN 04/04/20 12:45 Pharmacy to Dose - Vancomycin 1 dose .XX ASDIRECTED 04/04/20 12:58 Blood Glucose Check, Bedside [RC] TIDAC Dextrose 50% in Water 50 ml IV ASDIRECTED PRN Glucagon,Human Recombinant [GlucaGen] 1 mg IM ASDIRECTED PRN LORazepam [Ativan] See Protocol IVPUSH Q4H PRN oxyCODONE 10 mg PO Q4H PRN 04/04/20 12:59 Insulin Aspart [NovoLOG] See Protocol SUBCUT TIDAC 04/04/20 13:00 CIWAA Assessment [RC] Q4H 04/04/20 13:01 Elevate Extremity [RC] BID 04/04/20 13:02 Telemetry Monitoring [Cardiac Monitoring] [RC] Q8H 04/04/20 15:00 Piperacillin/Tazobactam [Piperacil-Tazobact] 3.375 gm Sodium Chloride 0.9% [Normal Saline] 100 ml IV Q6H 04/04/20 21:00 Folic Acid 1 mg PO BEDTIME Thiamine [Vitamin B-1] 100 mg PO BEDTIME 04/05/20 08:00 Vancomycin/Water for INJ (PEG) [Vancomycin 2 GM/400 ML Premix] 2 gm Premix Bag 1 bag IV Q12H 04/05/20 09:00 Amiodarone [Cordarone] 200 mg PO DAILY Metoprolol Succinate [Toprol XL] 100 mg PO DAILY atorvaSTATin [Lipitor] 20 mg PO DAILY 04/05/20 17:30 Rivaroxaban [Xarelto] 20 mg PO WITHDINNER 04/06/20 05:11 CBC WITH AUTO DIFF [HEME] AM COMPREHENSIVE METABOLIC PN,CMP [CHEM] AM MAGNESIUM [CHEM] AM 04/06/20 07:30 VANCOMYCIN TROUGH [CHEM] Routine 04/07/20 05:11 CBC WITH AUTO DIFF [HEME] AM COMPREHENSIVE METABOLIC PN,CMP [CHEM] AM MAGNESIUM [CHEM] AM - Plan Plan:: This 59-year-old male admitted with right lower leg cellulitis 1. Right lower leg cellulitis/left elbow cellulitis -Mild improvement -Continue vancomycin and Zosyn -Blood cultures negative x1 day -Elevate extremity as much as possible - CT scan of the right lower extremity revealed edema but no air or gas in the tissues and no abscess noted. -Oxycodone and morphine as needed pain -X-ray of left elbow revealed edema and soft tissues no signs of bursitis. -Obtain echo due to multiple sites of infection 2. CHRISTOPHER -Mild improvement with hydration continue to monitor with labs in a.m. -Hold lisinopril for now -IV fluids LR at 125 3. DM type II -NovoLog sliding scale insulin, increase to medium sliding scale to improve blood sugar management -Monitor blood sugars 3 times daily AC - A1c 7.3 -Hold Metformin 4. HTN/atrial fibrillation -Continue metoprolol, amiodarone -Hold chlorthalidone and lisinopril due to CHRISTOPHER -No history of CHF -Continue Xarelto 5. Alcohol use -Reports 2-3 times per week -CIWAA assessment with Ativan protocol as needed -Thiamine and folic acid VTE prophylaxis: Xarelto CODE STATUS: Full code Dispo: 2 to 3 days pending improvement
[2020-04-05] MEDS: oxyCODONE 5 MG Tab PO PRN ×3 (08:20→22:48)
[2020-04-05] MEDS: Vancomycin/Water for INJ (PEG) 2 GM in Premix Bag 1 BAG IV SCH ×2 (08:29→20:23)
[2020-04-05] MEDS ORDERED: Amiodarone 200 MG Tab PO SCH (09:00)
[2020-04-05] MEDS: Metoprolol Succinate 100 MG Tab.ER PO SCH (09:45)
[2020-04-05] MEDS: atorvaSTATin 20 MG Tab PO SCH (09:46)
[2020-04-05] MEDS: Insulin Aspart 100 Units/ML 3 ML Pen SUBCUT SCH ×3 (09:47→17:04)
[2020-04-05] MEDS: Rivaroxaban 10 MG Tab PO SCH (18:02)
[2020-04-05] MEDS: Folic Acid 1 MG Tab PO SCH (20:00)
[2020-04-05] MEDS: Thiamine 100 MG Tab PO SCH (20:01)
[2020-04-05] MEDS: Sodium Chloride 0.9% 2.5 ML Syringe FLUSH PRN (20:23)
[2020-04-06] MEDS: Piperacillin/Tazobactam 3.375 GM in Sodium Chloride 0.9% 100 ML IV SCH ×5 (00:01→23:36)
[2020-04-06] MEDS: Lactated Ringers 1,000 ML IV SCH (07:22)
[2020-04-06] MEDS: Insulin Aspart 100 Units/ML 3 ML Pen SUBCUT SCH ×3 (08:25→17:32)
[2020-04-06] MEDS: Metoprolol Succinate 100 MG Tab.ER PO SCH (08:34)
[2020-04-06] MEDS: atorvaSTATin 20 MG Tab PO SCH (08:34)
[2020-04-06] MEDS: Amiodarone 200 MG Tab PO SCH (08:35)
[2020-04-06 08:41] LABS: POTASSIUM,K 3.9 mmol/L (3.5-5.1)
[2020-04-06] MEDS ORDERED: Magnesium Sulfate/Water 2 GM/50 ML BAG IV ONE (09:00)
--- NOTE | 2020-04-06 09:06 | PCM.PN ---
- General Info Date of Service: 04/06/20 Admission Dx/Problem (Free Text): Admission Diagnosis/Problem Admission Diagnosis/Problem Cellulitis Subjective Update: Reports feeling much better today. Less pain to his leg. Denies any shortness of breath, chest pain or palpitations. He reports he has not been getting his medications. But per MAR patient has been receiving all appropriate medications. Reports he is not eating and drinking much. Encouraged to drink more fluids today. Functional Status: Reports: Pain Controlled, Tolerating Diet - Review of Systems General: Reports: No Symptoms. Denies: Weakness, Fatigue HEENT: Reports: No Symptoms. Denies: Headaches, Visual Changes Pulmonary: Reports: No Symptoms. Denies: Shortness of Breath Cardiovascular: Reports: No Symptoms. Denies: Chest Pain Gastrointestinal: Reports: No Symptoms. Denies: Abdominal Pain, Nausea, Vomiting Genitourinary: Reports: No Symptoms. Denies: Dysuria, Frequency Skin: Reports: Other (erythema) Neurological: Reports: No Symptoms Psychiatric: Reports: No Symptoms - Patient Data Vitals - Most Recent: Last Vital Signs Temp 206.2 F H 04/06/20 07:42 Pulse 66 04/06/20 08:34 Resp 14 04/06/20 07:42 BP 143/59 H 04/06/20 08:34 Pulse Ox 94 L 04/06/20 07:42 Weight - Most Recent: 133.764 kg I&O - Last 24 Hours: Intake & Output 04/05/20 04/06/20 04/06/20 22:59 06:59 14:59 Intake Total 2921 Output Total 1850 Balance 1071 Lab Results Last 24 Hours: Laboratory Results - last 24 hr 04/05/20 04/05/20 04/06/20 Range/Units 11:47 17:02 05:28 WBC (4.0-11.0) K/uL RBC (4.50-5.90) M/uL Hgb (13.0-17.0) g/dL Hct (38.0-50.0) % MCV (80.0-98.0) fL MCH (27.0-32.0) pg MCHC (31.0-37.0) g/dL RDW Std Deviation (28.0-62.0) fl RDW Coeff of Hilda (11.0-15.0) % Plt Count (150-400) K/uL MPV (7.40-12.00) fL Neut % (Auto) (48.0-80.0) % Lymph % (Auto) (16.0-40.0) % [place] % (Auto) (0.0-15.0) % Eos % (Auto) (0.0-7.0) % Baso % (Auto) (0.0-1.5) % Neut # (Auto) (1.4-5.7) K/uL Lymph # (Auto) (0.6-2.4) K/uL [place] # (Auto) (0.0-0.8) K/uL Eos # (Auto) (0.0-0.7) K/uL Baso # (Auto) (0.0-0.1) K/uL Nucleated RBC % /100WBC Nucleated RBCs # K/uL Sodium (136-148) mmol/L Potassium (3.5-5.1) mmol/L Chloride (98-107) mmol/L Carbon Dioxide (21.0-32.0) mmol/L BUN (7.0-18.0) mg/dL Creatinine (0.8-1.3) mg/dL Est Cr Clr Drug Dosing mL/min Estimated GFR (MDRD) ml/min Glucose (74-106) mg/dL POC Glucose 187 H 191 H 178 H (60-110) mg/dL Calcium (8.5-10.1) mg/dL Magnesium (1.8-2.4) mg/dL Total Bilirubin (0.2-1.0) mg/dL AST (15-37) IU/L ALT (14-63) IU/L Alkaline Phosphatase (46-116) U/L Total Protein (6.4-8.2) g/dL Albumin (3.4-5.0) g/dL Globulin (2.6-4.0) g/dL Albumin/Globulin Ratio (0.9-1.6) 04/06/20 04/06/20 04/06/20 Range/Units 07:51 07:51 07:52 WBC 13.11 H (4.0-11.0) K/uL RBC 4.30 L (4.50-5.90) M/uL Hgb 13.3 (13.0-17.0) g/dL Hct 39.8 (38.0-50.0) % MCV 92.6 (80.0-98.0) fL MCH 30.9 (27.0-32.0) pg MCHC 33.4 (31.0-37.0) g/dL RDW Std Deviation 43.7 (28.0-62.0) fl RDW Coeff of Hilda 13 (11.0-15.0) % Plt Count 121 L (150-400) K/uL MPV 9.90 (7.40-12.00) fL Neut % (Auto) 80.5 H (48.0-80.0) % Lymph % (Auto) 11.4 L (16.0-40.0) % [place] % (Auto) 7.8 (0.0-15.0) % Eos % (Auto) 0.2 (0.0-7.0) % Baso % (Auto) 0.1 (0.0-1.5) % Neut # (Auto) 10.6 H (1.4-5.7) K/uL Lymph # (Auto) 1.5 (0.6-2.4) K/uL [place] # (Auto) 1.0 H (0.0-0.8) K/uL Eos # (Auto) 0.0 (0.0-0.7) K/uL Baso # (Auto) 0.0 (0.0-0.1) K/uL Nucleated RBC % 0.0 /100WBC Nucleated RBCs # 0 K/uL Sodium 137 (136-148) mmol/L Potassium 3.9 (3.5-5.1) mmol/L Chloride 101 (98-107) mmol/L Carbon Dioxide 27.0 (21.0-32.0) mmol/L BUN 27 H (7.0-18.0) mg/dL Creatinine 1.5 H (0.8-1.3) mg/dL Est Cr Clr Drug Dosing 56.76 mL/min Estimated GFR (MDRD) 47.6 ml/min Glucose 187 H (74-106) mg/dL POC Glucose 196 H (60-110) mg/dL Calcium 9.1 (8.5-10.1) mg/dL Magnesium 1.5 L (1.8-2.4) mg/dL Total Bilirubin 1.1 H (0.2-1.0) mg/dL AST 29 (15-37) IU/L ALT 49 (14-63) IU/L Alkaline Phosphatase 90 (46-116) U/L Total Protein 7.1 (6.4-8.2) g/dL Albumin 2.5 L (3.4-5.0) g/dL Globulin 4.6 H (2.6-4.0) g/dL Albumin/Globulin Ratio 0.5 L (0.9-1.6) Jj Results Last 24 Hours: Microbiology 04/04/20 08:50 Aerobic Blood Culture - Preliminary Blood - Venous - Lab Draw NO GROWTH AFTER 2 DAYS Anaerobic Blood Culture - Preliminary NO GROWTH AFTER 2 DAYS 04/04/20 08:30 Aerobic Blood Culture - Preliminary Blood - Venous NO GROWTH AFTER 2 DAYS Anaerobic Blood Culture - Preliminary NO GROWTH AFTER 2 DAYS Med Orders - Current: Current Medications Acetaminophen (Tylenol) 650 mg PO Q4H PRN PRN Reason: Pain (Mild 1-3)/fever Last Admin: 04/04/20 21:32 Dose: 650 mg Documented by: Amiodarone HCl (Cordarone) 100 mg PO DAILY [facility] Last Admin: 04/06/20 08:35 Dose: 100 mg Documented by: Atorvastatin Calcium (Lipitor) 20 mg PO DAILY [facility] Last Admin: 04/06/20 08:34 Dose: 20 mg Documented by: Dextrose/Water (Dextrose 50% In Water) 50 ml IV ASDIRECTED PRN PRN Reason: Hypoglycemia Docusate Sodium (Colace) 100 mg PO BID PRN PRN Reason: Constipation Folic Acid (Folic Acid) 1 mg PO BEDTIME [facility] Last Admin: 04/05/20 20:00 Dose: 1 mg Documented by: Glucagon (Glucagen) 1 mg IM ASDIRECTED PRN PRN Reason: Hypoglycemia Lactated Ringer's (Ringers, Lactated) 1,000 mls @ 125 mls/hr IV Q8H [facility] Last Admin: 04/06/20 07:22 Dose: 125 mls/hr Documented by: Vancomycin HCl 2 gm/ Premix 400 mls @ 200 mls/hr IV Q12H [facility] Last Admin: 04/05/20 20:23 Dose: 200 mls/hr Documented by: Piperacillin Sod/Tazobactam (Sod 3.375 gm/ Sodium Chloride) 100 mls @ 200 mls/hr IV Q6H [facility] Last Admin: 04/06/20 05:36 Dose: 200 mls/hr Documented by: Magnesium Sulfate (Magnesium Sulfate In Water Premix) 2 gm in 50 mls @ 50 mls/hr IV ONETIME ONE Stop: 04/06/20 09:59 Insulin Aspart (Novolog) 0 unit SUBCUT TIDAC [facility]; Protocol Last Admin: 04/06/20 08:25 Dose: 2 units Documented by: Lorazepam (Ativan) 0 mg IVPUSH Q4H PRN; Protocol PRN Reason: CIWAA Metoprolol Succinate (Toprol Xl) 100 mg PO DAILY [facility] Last Admin: 04/06/20 08:34 Dose: 100 mg Documented by: Morphine Sulfate (Morphine) 2 mg IVPUSH Q2H PRN PRN Reason: Pain (severe 7-10) Ondansetron HCl (Zofran) 4 mg IVPUSH Q4H PRN PRN Reason: Nausea Oxycodone HCl (Oxycodone) 10 mg PO Q4H PRN PRN Reason: Pain (moderate 4-6) Last Admin: 04/05/20 22:48 Dose: 10 mg Documented by: [facility] Last Admin: 04/05/20 18:02 Dose: 20 mg Documented by: Sodium Chloride (Saline Flush) 2.5 ml FLUSH ASDIRECTED PRN PRN Reason: Keep Vein Open Last Admin: 04/05/20 20:23 Dose: 2.5 ml Documented by: Thiamine HCl (Vitamin B-1) 100 mg PO BEDTIME [facility] Last Admin: 04/05/20 20:01 Dose: 100 mg Documented by: Vancomycin HCl (Pharmacy To Dose - Vancomycin) 1 dose .XX ASDIRECTED [facility] Discontinued Medications Acetaminophen (Tylenol Extra Strength) 1,000 mg PO ONETIME ONE Stop: 04/04/20 08:51 Last Admin: 04/04/20 09:42 Dose: 1,000 mg Documented by: Amiodarone HCl (Cordarone) 200 mg PO DAILY [facility] [place] Last Admin: 04/05/20 09:45 Dose: 200 mg Documented by: Cefazolin Sodium/Dextrose 2 gm (/ Premix) 50 mls @ 100 mls/hr IV ONETIME ONE Stop: 04/04/20 09:18 Last Admin: 04/04/20 09:45 Dose: 100 mls/hr Documented by: Lactated Ringer's (Ringers, Lactated) 1,000 mls @ 999 mls/hr IV .BOLUS ONE Stop: 04/04/20 10:20 Last Admin: 04/04/20 09:45 Dose: 999 mls/hr Documented by: Vancomycin HCl 2 gm/ Premix 400 mls @ 200 mls/hr IV NOW ONE Stop: 04/04/20 12:29 Last Admin: 04/04/20 12:59 Dose: 200 mls/hr Documented by: Piperacillin Sod/Tazobactam (Sod 3.375 gm/ Sodium Chloride) 100 mls @ 200 mls/hr IV Q6H [facility] Last Admin: 04/04/20 14:08 Dose: Not Given Documented by: Piperacillin Sod/Tazobactam (Sod 3.375 gm/ Sodium Chloride) 100 mls @ 200 mls/hr IV Q6H [facility] Last Admin: 04/05/20 11:56 Dose: 200 mls/hr Documented by: Iopamidol (Isovue Multipack-370 (76%)) 100 ml IVPUSH ONETIME STA Stop: 04/04/20 19:07 Last Admin: 04/04/20 19:07 Dose: 100 ml Documented by: Oxycodone HCl (Oxycodone) 10 mg PO ONETIME ONE Stop: 04/04/20 08:51 Last Admin: 04/04/20 09:42 Dose: 10 mg Documented by: Oxycodone HCl (Oxycodone) 5 mg PO Q4H PRN PRN Reason: Pain (moderate 4-6) Sodium Chloride (Saline Flush) 10 ml FLUSH ASDIRECTED PRN PRN Reason: Keep Vein Open Last Admin: 04/04/20 09:51 Dose: 10 ml Documented by: Sodium Chloride (Saline Flush) 2.5 ml FLUSH ASDIRECTED PRN PRN Reason: Keep Vein Open Last Admin: 04/04/20 09:51 Dose: 2.5 ml Documented by: Vancomycin HCl (Pharmacy To Dose - Vancomycin) 1 dose .XX ONETIME ONE Stop: 04/04/20 08:50 Last Admin: 04/05/20 02:40 Dose: Not Given Documented by: - Exam General: Alert, Oriented, Cooperative, No Acute Distress Lungs: Clear to Auscultation, Normal Respiratory Effort Cardiovascular: Regular Rate, No Murmurs, Irregular Rhythm GI/Abdominal Exam: Normal Bowel Sounds, Soft, Non-Tender Extremities: Normal Inspection, Non-Tender, Increased Warmth (Noted to left elbow with surrounding erythema. No significant worsening from yesterday no significant pain when moving joint.) Wound/Incisions: Erythema Improving (Erythema is improving to right lower extremity no further increasing or spreading up side. Lower [place] and posterior calf continues to be red warm and tender. No obvious sites of any draining and no fluctuant areas. No tenderness or pain with joint movement of ankle or knee.) Psy/Mental Status: Alert, Normal Affect, Normal Mood Sepsis Event Note - Evaluation Sepsis Screening Result: No Definite Risk - Focused Exam Vital Signs: Vital Signs Temp Pulse Pulse Resp BP BP BP 04/06/20 08:34 66 143/59 H 04/06/20 07:42 206.2 F H 66 14 143/59 H 04/06/20 05:24 97.3 F 62 18 135/72 04/06/20 00:00 96.9 F 83 20 134/56 L Pulse Ox 04/06/20 08:34 04/06/20 07:42 94 L 04/06/20 05:24 91 L 04/06/20 00:00 92 L - Problem List & Annotations (1) Cellulitis of right leg SNOMED Code(s): 724443364 Code(s): L03.115 - CELLULITIS OF RIGHT LOWER LIMB Status: Acute Current Visit: Yes (2) HTN (hypertension) SNOMED Code(s): 67708296 Code(s): I10 - ESSENTIAL (PRIMARY) HYPERTENSION Status: Chronic Current Visit: Yes Qualifiers: Hypertension type: essential hypertension Qualified Code(s): I10 - Essential (primary) hypertension (3) HLD (hyperlipidemia) SNOMED Code(s): 68828350 Code(s): E78.5 - HYPERLIPIDEMIA, UNSPECIFIED Status: Chronic Current Visit: Yes (4) DM type 2 (diabetes mellitus, type 2) SNOMED Code(s): 90921526 Code(s): E11.9 - TYPE 2 DIABETES MELLITUS WITHOUT COMPLICATIONS Status: Chronic Current Visit: Yes Qualifiers: 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 (5) Atrial fibrillation SNOMED Code(s): 21197390 Code(s): I48.91 - UNSPECIFIED ATRIAL FIBRILLATION Status: Chronic Current Visit: Yes (6) Chronic anticoagulation SNOMED Code(s): 619276763 Code(s): Z79.01 - [facility] (CURRENT) USE OF ANTICOAGULANTS Status: Chronic Current Visit: Yes (7) Obesity SNOMED Code(s): 824170329, 425694217 Code(s): E66.9 - OBESITY, UNSPECIFIED Status: Chronic Current Visit: Yes (8) Tobacco abuse SNOMED Code(s): 841193683 Code(s): Z72.0 - TOBACCO USE Status: Chronic Current Visit: Yes (9) Alcohol use SNOMED Code(s): 507958 Code(s): Z72.89 - OTHER PROBLEMS RELATED TO LIFESTYLE Status: Chronic Current Visit: Yes (10) Elevated serum creatinine SNOMED Code(s): 573277037 Code(s): R79.89 - OTHER SPECIFIED ABNORMAL FINDINGS OF BLOOD CHEMISTRY Status: Acute Current Visit: Yes - Problem List Review Problem List Initiated/Reviewed/Updated: Yes - My Orders Last 24 Hours: My Active Orders 04/05/20 09:00 Metoprolol Succinate [Toprol XL] 100 mg PO DAILY atorvaSTATin [Lipitor] 20 mg PO DAILY 04/05/20 09:45 Echo Comp wo Cont [US] Urgent 04/05/20 15:30 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 [Cardiac Monitoring Discontinue] [RC] Click to Edit 04/05/20 17:30 Rivaroxaban [Xarelto] 20 mg PO WITHDINNER 04/05/20 18:00 Piperacillin/Tazobactam [Piperacil-Tazobact] 3.375 gm Sodium Chloride 0.9% [Normal Saline] 100 ml IV Q6H 04/06/20 07:51 VANCOMYCIN TROUGH [CHEM] Routine 04/06/20 09:00 Amiodarone [Cordarone] 100 mg PO DAILY Magnesium Sulfate/Water [Magnesium Sulfate in Water Premix] 2 gm in 50 ml IV ONETIME 04/07/20 05:11 CBC WITH AUTO DIFF [HEME] AM COMPREHENSIVE METABOLIC PN,CMP [CHEM] AM MAGNESIUM [CHEM] AM - Plan Plan:: This 59-year-old male admitted with right lower leg cellulitis 1. Right lower leg cellulitis/left elbow cellulitis -Mild improvement -Continue vancomycin and Zosyn -Blood cultures negative x1 day -Elevate extremity as much as possible -Oxycodone and morphine as needed pain -X-ray of left elbow revealed edema and soft tissues no signs of bursitis. -Echo pending 2. CHRISTOPHER -Mild improvement with hydration continue to monitor with labs in a.m. -Hold lisinopril for now 3. DM type II -Improved blood sugars overnight with increased sliding scale coverage -NovoLog sliding scale insulin -Monitor blood sugars 3 times daily AC - A1c 7.3 -Hold Metformin 4. HTN/atrial fibrillation -Continue metoprolol, amiodarone -Hold chlorthalidone and lisinopril due to CHRISTOPHER -No history of CHF -Continue Xarelto 5. Alcohol use -Reports 2-3 times per week -CIWAA assessment with Ativan protocol as needed -Thiamine and folic acid VTE prophylaxis: Xarelto CODE STATUS: Full code Dispo: 2 to 3 days pending improvement
[2020-04-06] MEDS: Vancomycin/Water for INJ (PEG) 2 GM in Premix Bag 1 BAG IV SCH ×2 (09:35→19:33)
[2020-04-06] MEDS: oxyCODONE 5 MG Tab PO PRN ×2 (10:59→16:53)
[2020-04-06] MEDS: Rivaroxaban 10 MG Tab PO SCH (16:33)
[2020-04-06] MEDS: Thiamine 100 MG Tab PO SCH (21:42)
[2020-04-06] MEDS: Folic Acid 1 MG Tab PO SCH (21:42)
[2020-04-07] MEDS: Piperacillin/Tazobactam 3.375 GM in Sodium Chloride 0.9% 100 ML IV SCH ×4 (05:24→23:33)
[2020-04-07 06:56] LABS: CARBON DIOXIDE,CO2 27.1 mmol/L (21.0-32.0); POTASSIUM,K 3.7 mmol/L (3.5-5.1)
[2020-04-07] MEDS: Vancomycin/Water for INJ (PEG) 2 GM in Premix Bag 1 BAG IV SCH ×2 (07:55→21:18)
[2020-04-07] MEDS: atorvaSTATin 20 MG Tab PO SCH (08:04)
[2020-04-07] MEDS: Amiodarone 200 MG Tab PO SCH (08:04)
[2020-04-07] MEDS: Metoprolol Succinate 100 MG Tab.ER PO SCH (08:04)
[2020-04-07] MEDS: oxyCODONE 5 MG Tab PO PRN ×3 (11:35→21:27)
[2020-04-07] MEDS: Insulin Aspart 100 Units/ML 3 ML Pen SUBCUT SCH ×3 (11:44→19:13)
--- NOTE | 2020-04-07 13:41 | PCM.PN ---
- General Info Date of Service: 04/07/20 Subjective Update: Patient states that his right leg feels "less tight" and does not hurt as much. He states that it is much easier to ambulate. States that his Left elbow blue not hurt. Denies fever chills, nausea, vomiting, SOB, chest pain. - Review of Systems General: Denies: Fever, Weakness, Chills Pulmonary: Denies: Shortness of Breath, Pleuritic Chest Pain, Cough Cardiovascular: Denies: Chest Pain, Palpitations, Dyspnea on Exertion Gastrointestinal: Denies: Abdominal Pain, Nausea, Vomiting Musculoskeletal: Reports: Leg Pain (right). Denies: Arm Pain Skin: Reports: Rash, Other (right leg redness, left elbow redness) Neurological: Reports: Confusion, Dizziness - Patient Data Vitals - Most Recent: Last Vital Signs Temp 96.7 F L 04/07/20 11:00 Pulse 83 04/07/20 11:00 Resp 16 04/07/20 11:00 BP 140/76 04/07/20 11:00 Pulse Ox 94 L 04/07/20 12:00 Weight - Most Recent: 294 lb 14.4 oz I&O - Last 24 Hours: Intake & Output 04/06/20 04/07/20 04/07/20 22:59 06:59 14:59 Intake Total 560 600 150 Output Total 970 560 375 Balance -410 40 -225 Lab Results Last 24 Hours: Laboratory Results - last 24 hr 04/06/20 04/07/20 04/07/20 Range/Units 16:40 05:55 05:55 WBC 13.14 H (4.0-11.0) K/uL RBC 4.40 L (4.50-5.90) M/uL Hgb 13.5 (13.0-17.0) g/dL Hct 41.1 (38.0-50.0) % MCV 93.4 (80.0-98.0) fL MCH 30.7 (27.0-32.0) pg MCHC 32.8 (31.0-37.0) g/dL RDW Std Deviation 44.6 (28.0-62.0) fl RDW Coeff of Hilda 13 (11.0-15.0) % Plt Count 155 (150-400) K/uL MPV 10.10 (7.40-12.00) fL Neut % (Auto) 81.9 H (48.0-80.0) % Lymph % (Auto) 11.6 L (16.0-40.0) % [place] % (Auto) 6.1 (0.0-15.0) % Eos % (Auto) 0.3 (0.0-7.0) % Baso % (Auto) 0.1 (0.0-1.5) % Neut # (Auto) 10.8 H (1.4-5.7) K/uL Lymph # (Auto) 1.5 (0.6-2.4) K/uL [place] # (Auto) 0.8 (0.0-0.8) K/uL Eos # (Auto) 0.0 (0.0-0.7) K/uL Baso # (Auto) 0.0 (0.0-0.1) K/uL Nucleated RBC % 0.0 /100WBC Nucleated RBCs # 0 K/uL Sodium 138 (136-148) mmol/L Potassium 3.7 (3.5-5.1) mmol/L Chloride 102 (98-107) mmol/L Carbon Dioxide 27.1 (21.0-32.0) mmol/L BUN 27 H (7.0-18.0) mg/dL Creatinine 1.4 H (0.8-1.3) mg/dL Est Cr Clr Drug Dosing 60.82 mL/min Estimated GFR (MDRD) 51.5 ml/min Glucose 177 H (74-106) mg/dL POC Glucose 173 H (60-110) mg/dL Calcium 8.9 (8.5-10.1) mg/dL Magnesium 1.7 L (1.8-2.4) mg/dL Total Bilirubin 1.0 (0.2-1.0) mg/dL AST 43 H (15-37) IU/L ALT 66 H (14-63) IU/L Alkaline Phosphatase 106 (46-116) U/L Total Protein 7.4 (6.4-8.2) g/dL Albumin 2.5 L (3.4-5.0) g/dL Globulin 4.9 H (2.6-4.0) g/dL Albumin/Globulin Ratio 0.5 L (0.9-1.6) 11/21/20 11/21/20 Range/Units 06:26 11:53 WBC (4.0-11.0) K/uL RBC (4.50-5.90) M/uL Hgb (13.0-17.0) g/dL Hct (38.0-50.0) % MCV (80.0-98.0) fL MCH (27.0-32.0) pg MCHC (31.0-37.0) g/dL RDW Std Deviation (28.0-62.0) fl RDW Coeff of Hilda (11.0-15.0) % Plt Count (150-400) K/uL MPV (7.40-12.00) fL Neut % (Auto) (48.0-80.0) % Lymph % (Auto) (16.0-40.0) % [place] % (Auto) (0.0-15.0) % Eos % (Auto) (0.0-7.0) % Baso % (Auto) (0.0-1.5) % Neut # (Auto) (1.4-5.7) K/uL Lymph # (Auto) (0.6-2.4) K/uL [place] # (Auto) (0.0-0.8) K/uL Eos # (Auto) (0.0-0.7) K/uL Baso # (Auto) (0.0-0.1) K/uL Nucleated RBC % /100WBC Nucleated RBCs # K/uL Sodium (136-148) mmol/L Potassium (3.5-5.1) mmol/L Chloride (98-107) mmol/L Carbon Dioxide (21.0-32.0) mmol/L BUN (7.0-18.0) mg/dL Creatinine (0.8-1.3) mg/dL Est Cr Clr Drug Dosing mL/min Estimated GFR (MDRD) ml/min Glucose (74-106) mg/dL POC Glucose 185 H 233 H (60-110) mg/dL Calcium (8.5-10.1) mg/dL Magnesium (1.8-2.4) mg/dL Total Bilirubin (0.2-1.0) mg/dL AST (15-37) IU/L ALT (14-63) IU/L Alkaline Phosphatase (46-116) U/L Total Protein (6.4-8.2) g/dL Albumin (3.4-5.0) g/dL Globulin (2.6-4.0) g/dL Albumin/Globulin Ratio (0.9-1.6) Jj Results Last 24 Hours: Microbiology 04/04/20 08:50 Aerobic Blood Culture - Preliminary Blood - Venous - Lab Draw NO GROWTH AFTER 3 DAYS Anaerobic Blood Culture - Preliminary NO GROWTH AFTER 3 DAYS 04/04/20 08:30 Aerobic Blood Culture - Preliminary Blood - Venous NO GROWTH AFTER 3 DAYS Anaerobic Blood Culture - Preliminary NO GROWTH AFTER 3 DAYS Med Orders - Current: Current Medications Acetaminophen (Tylenol) 650 mg PO Q4H PRN PRN Reason: Pain (Mild 1-3)/fever Last Admin: 04/04/20 21:32 Dose: 650 mg Documented by: Amiodarone HCl (Cordarone) 100 mg PO DAILY [facility] Last Admin: 04/07/20 08:04 Dose: 100 mg Documented by: Atorvastatin Calcium (Lipitor) 20 mg PO DAILY [facility] Last Admin: 04/07/20 08:04 Dose: 20 mg Documented by: Dextrose/Water (Dextrose 50% In Water) 50 ml IV ASDIRECTED PRN PRN Reason: Hypoglycemia Docusate Sodium (Colace) 100 mg PO BID PRN PRN Reason: Constipation Folic Acid (Folic Acid) 1 mg PO BEDTIME [facility] Last Admin: 04/06/20 21:42 Dose: 1 mg Documented by: Glucagon (Glucagen) 1 mg IM ASDIRECTED PRN PRN Reason: Hypoglycemia Vancomycin HCl 2 gm/ Premix 400 mls @ 200 mls/hr IV Q12H [facility] Last Admin: 04/07/20 07:55 Dose: 200 mls/hr Documented by: Piperacillin Sod/Tazobactam (Sod 3.375 gm/ Sodium Chloride) 100 mls @ 200 mls/hr IV Q6H [facility] Last Admin: 04/07/20 11:37 Dose: 200 mls/hr Documented by: Insulin Aspart (Novolog) 0 unit SUBCUT TIDAC [facility]; Protocol Last Admin: 04/07/20 11:44 Dose: 2 units Documented by: Lorazepam (Ativan) 0 mg IVPUSH Q4H PRN; Protocol PRN Reason: CIWAA Metoprolol Succinate (Toprol Xl) 100 mg PO DAILY [facility] Last Admin: 04/07/20 08:04 Dose: 100 mg Documented by: Morphine Sulfate (Morphine) 2 mg IVPUSH Q2H PRN PRN Reason: Pain (severe 7-10) Ondansetron HCl (Zofran) 4 mg IVPUSH Q4H PRN PRN Reason: Nausea Oxycodone HCl (Oxycodone) 10 mg PO Q4H PRN PRN Reason: Pain (moderate 4-6) Last Admin: 04/07/20 11:35 Dose: 10 mg Documented by: Rivaroxaban (Xarelto) 20 mg PO WITHDINNER [facility] Last Admin: 04/06/20 16:33 Dose: 20 mg Documented by: Sodium Chloride (Saline Flush) 2.5 ml FLUSH ASDIRECTED PRN PRN Reason: Keep Vein Open Last Admin: 04/05/20 20:23 Dose: 2.5 ml Documented by: Thiamine HCl (Vitamin B-1) 100 mg PO BEDTIME [facility] Last Admin: 04/06/20 21:42 Dose: 100 mg Documented by: Vancomycin HCl (Pharmacy To Dose - Vancomycin) 1 dose .XX ASDIRECTED [facility] Discontinued Medications Acetaminophen (Tylenol Extra Strength) 1,000 mg PO ONETIME ONE Stop: 04/04/20 08:51 Last Admin: 04/04/20 09:42 Dose: 1,000 mg Documented by: Amiodarone HCl (Cordarone) 200 mg PO DAILY [facility] Last Admin: 04/05/20 09:45 Dose: 200 mg Documented by: Cefazolin Sodium/Dextrose 2 gm (/ Premix) 50 mls @ 100 mls/hr IV ONETIME ONE Stop: 04/04/20 09:18 Last Admin: 04/04/20 09:45 Dose: 100 mls/hr Documented by: Lactated Ringer's (Ringers, Lactated) 1,000 mls @ 999 mls/hr IV .BOLUS ONE Stop: 04/04/20 10:20 Last Admin: 04/04/20 09:45 Dose: 999 mls/hr Documented by: Vancomycin HCl 2 gm/ Premix 400 mls @ 200 mls/hr IV NOW ONE Stop: 04/04/20 12:29 Last Admin: 04/04/20 12:59 Dose: 200 mls/hr Documented by: Lactated Ringer's (Ringers, Lactated) 1,000 mls @ 125 mls/hr IV Q8H [facility] Last Admin: 04/06/20 07:22 Dose: 125 mls/hr Documented by: Piperacillin Sod/Tazobactam (Sod 3.375 gm/ Sodium Chloride) 100 mls @ 200 mls/hr IV Q6H [facility] Last Admin: 04/04/20 14:08 Dose: Not Given Documented by: Piperacillin Sod/Tazobactam (Sod 3.375 gm/ Sodium Chloride) 100 mls @ 200 mls/hr IV Q6H [facility] Last Admin: 04/05/20 11:56 Dose: 200 mls/hr Documented by: Magnesium Sulfate (Magnesium Sulfate In Water Premix) 2 gm in 50 mls @ 50 mls/hr IV ONETIME ONE Stop: 04/06/20 09:59 Last Admin: 04/06/20 09:49 Dose: 50 mls/hr Documented by: Iopamidol (Isovue Multipack-370 (76%)) 100 ml IVPUSH ONETIME STA Stop: 04/04/20 19:07 Last Admin: 04/04/20 19:07 Dose: 100 ml Documented by: Oxycodone HCl (Oxycodone) 10 mg PO ONETIME ONE Stop: 04/04/20 08:51 Last Admin: 04/04/20 09:42 Dose: 10 mg Documented by: Oxycodone HCl (Oxycodone) 5 mg PO Q4H PRN PRN Reason: Pain (moderate 4-6) Sodium Chloride (Saline Flush) 10 ml FLUSH ASDIRECTED PRN PRN Reason: Keep Vein Open Last Admin: 04/04/20 09:51 Dose: 10 ml Documented by: Sodium Chloride (Saline Flush) 2.5 ml FLUSH ASDIRECTED PRN PRN Reason: Keep Vein Open Last Admin: 04/04/20 09:51 Dose: 2.5 ml Documented by: Vancomycin HCl (Pharmacy To Dose - Vancomycin) 1 dose .XX ONETIME ONE Stop: 04/04/20 08:50 Last Admin: 04/05/20 02:40 Dose: Not Given Documented by: - Exam General: Alert, Oriented Lungs: Clear to Auscultation, Normal Respiratory Effort Cardiovascular: Regular Rate, Irregular Rhythm GI/Abdominal Exam: Normal Bowel Sounds, Soft, Non-Tender Extremities: Normal Range of Motion, Leg Pain (right), Increased Warmth (right leg), Redness (right leg, left elbow) Neurological: Sensation Intact Sepsis Event Note - Evaluation Sepsis Screening Result: No Definite Risk - Focused Exam Vital Signs: Vital Signs Temp Pulse Pulse Resp BP BP Pulse Ox 04/07/20 12:00 04/07/20 11:00 96.7 F L 83 16 140/76 94 L 04/07/20 08:04 64 148/69 H 04/07/20 07:52 97.5 F 64 16 148/69 H 97 04/07/20 03:59 96.8 F L 64 16 148/76 H 93 L Pulse Ox 04/07/20 12:00 94 L 04/07/20 11:00 04/07/20 08:04 04/07/20 07:52 04/07/20 03:59 - Problem List Review Problem List Initiated/Reviewed/Updated: Yes - My Orders Last 24 Hours: My Active Orders 04/08/20 05:11 BASIC METABOLIC PANEL,BMP [CHEM] AM CBC WITH AUTO DIFF [HEME] AM - Plan Plan:: Right lower leg cellulitis/left elbow cellulitis Improvement from previous day Continue vancomycin and Zosyn Oxycodone and morphine as needed pain DM type II -NovoLog sliding scale insulin HTN/atrial fibrillation Continue metoprolol, amiodarone Hold chlorthalidone and lisinopril due to CHRISTOPHER Continue Xarelto
[2020-04-07] MEDS: Rivaroxaban 10 MG Tab PO SCH (17:13)
[2020-04-07] MEDS: Thiamine 100 MG Tab PO SCH (21:00)
[2020-04-07] MEDS: Folic Acid 1 MG Tab PO SCH (21:00)
[2020-04-08] MEDS: Piperacillin/Tazobactam 3.375 GM in Sodium Chloride 0.9% 100 ML IV SCH ×3 (06:47→17:59)
[2020-04-08 06:48] LABS: CARBON DIOXIDE,CO2 30.5 mmol/L (21.0-32.0); POTASSIUM,K 3.8 mmol/L (3.5-5.1)
[2020-04-08] MEDS: Insulin Aspart 100 Units/ML 3 ML Pen SUBCUT SCH ×3 (08:29→18:00)
[2020-04-08] MEDS: Amiodarone 200 MG Tab PO SCH (08:30)
[2020-04-08] MEDS: Metoprolol Succinate 100 MG Tab.ER PO SCH (08:30)
[2020-04-08] MEDS: atorvaSTATin 20 MG Tab PO SCH (08:30)
--- NOTE | 2020-04-08 09:25 | PCM.PN ---
- General Info Date of Service: 04/08/20 - Review of Systems Systems Review Comment:: thinks swelling and erythema of left elbow and right leg has improved. - Patient Data Vitals - Most Recent: Last Vital Signs Temp 36.1 C 04/08/20 04:33 Pulse 80 04/08/20 08:30 Resp 16 04/08/20 04:33 BP 170/94 H 04/08/20 08:30 Pulse Ox 96 04/08/20 04:33 Weight - Most Recent: 133.764 kg I&O - Last 24 Hours: Intake & Output 04/07/20 04/08/20 04/08/20 22:59 06:59 14:59 Intake Total 100 600 Output Total 800 Balance 100 -200 Lab Results Last 24 Hours: Laboratory Results - last 24 hr 04/07/20 04/07/20 04/08/20 Range/Units 11:53 18:32 05:20 WBC 10.97 (4.0-11.0) K/uL RBC 4.26 L (4.50-5.90) M/uL Hgb 13.1 (13.0-17.0) g/dL Hct 39.7 (38.0-50.0) % MCV 93.2 (80.0-98.0) fL MCH 30.8 (27.0-32.0) pg MCHC 33.0 (31.0-37.0) g/dL RDW Std Deviation 43.7 (28.0-62.0) fl RDW Coeff of Hilda 13 (11.0-15.0) % Plt Count 170 (150-400) K/uL MPV 9.80 (7.40-12.00) fL Neut % (Auto) 81.4 H (48.0-80.0) % Lymph % (Auto) 12.3 L (16.0-40.0) % [place] % (Auto) 5.6 (0.0-15.0) % Eos % (Auto) 0.5 (0.0-7.0) % Baso % (Auto) 0.2 (0.0-1.5) % Neut # (Auto) 8.9 H (1.4-5.7) K/uL Lymph # (Auto) 1.4 (0.6-2.4) K/uL [place] # (Auto) 0.6 (0.0-0.8) K/uL Eos # (Auto) 0.1 (0.0-0.7) K/uL Baso # (Auto) 0.0 (0.0-0.1) K/uL Nucleated RBC % 0.0 /100WBC Nucleated RBCs # 0 K/uL Sodium (136-148) mmol/L Potassium (3.5-5.1) mmol/L Chloride (98-107) mmol/L Carbon Dioxide (21.0-32.0) mmol/L BUN (7.0-18.0) mg/dL Creatinine (0.8-1.3) mg/dL Est Cr Clr Drug Dosing mL/min Estimated GFR (MDRD) ml/min Glucose (74-106) mg/dL POC Glucose 233 H 205 H (60-110) mg/dL Calcium (8.5-10.1) mg/dL Vancomycin Trough (5.0-10.0) ug/mL 04/08/20 04/08/20 04/08/20 Range/Units 05:20 07:17 07:40 WBC (4.0-11.0) K/uL RBC (4.50-5.90) M/uL Hgb (13.0-17.0) g/dL Hct (38.0-50.0) % MCV (80.0-98.0) fL MCH (27.0-32.0) pg MCHC (31.0-37.0) g/dL RDW Std Deviation (28.0-62.0) fl RDW Coeff of Hilda (11.0-15.0) % Plt Count (150-400) K/uL MPV (7.40-12.00) fL Neut % (Auto) (48.0-80.0) % Lymph % (Auto) (16.0-40.0) % [place] % (Auto) (0.0-15.0) % Eos % (Auto) (0.0-7.0) % Baso % (Auto) (0.0-1.5) % Neut # (Auto) (1.4-5.7) K/uL Lymph # (Auto) (0.6-2.4) K/uL [place] # (Auto) (0.0-0.8) K/uL Eos # (Auto) (0.0-0.7) K/uL Baso # (Auto) (0.0-0.1) K/uL Nucleated RBC % /100WBC Nucleated RBCs # K/uL Sodium 139 (136-148) mmol/L Potassium 3.8 (3.5-5.1) mmol/L Chloride 103 (98-107) mmol/L Carbon Dioxide 30.5 (21.0-32.0) mmol/L BUN 23 H (7.0-18.0) mg/dL Creatinine 1.3 (0.8-1.3) mg/dL Est Cr Clr Drug Dosing 65.50 mL/min Estimated GFR (MDRD) 56.1 ml/min Glucose 181 H (74-106) mg/dL POC Glucose 187 H (60-110) mg/dL Calcium 8.9 (8.5-10.1) mg/dL Vancomycin Trough 18.3 H (5.0-10.0) ug/mL Jj Results Last 24 Hours: Microbiology 04/04/20 08:50 Aerobic Blood Culture - Preliminary Blood - Venous - Lab Draw NO GROWTH AFTER 4 DAYS Anaerobic Blood Culture - Preliminary NO GROWTH AFTER 4 DAYS 04/04/20 08:30 Aerobic Blood Culture - Preliminary Blood - Venous NO GROWTH AFTER 4 DAYS Anaerobic Blood Culture - Preliminary NO GROWTH AFTER 4 DAYS Med Orders - Current: Current Medications Acetaminophen (Tylenol) 650 mg PO Q4H PRN PRN Reason: Pain (Mild 1-3)/fever Last Admin: 04/04/20 21:32 Dose: 650 mg Documented by: Amiodarone HCl (Cordarone) 100 mg PO DAILY [facility] Last Admin: 04/08/20 08:30 Dose: 100 mg Documented by: Atorvastatin Calcium (Lipitor) 20 mg PO DAILY [facility] Last Admin: 04/08/20 08:30 Dose: 20 mg Documented by: Dextrose/Water (Dextrose 50% In Water) 50 ml IV ASDIRECTED PRN PRN Reason: Hypoglycemia Docusate Sodium (Colace) 100 mg PO BID PRN PRN Reason: Constipation Folic Acid (Folic Acid) 1 mg PO BEDTIME [facility] Last Admin: 04/07/20 21:00 Dose: 1 mg Documented by: Glucagon (Glucagen) 1 mg IM ASDIRECTED PRN PRN Reason: Hypoglycemia Piperacillin Sod/Tazobactam (Sod 3.375 gm/ Sodium Chloride) 100 mls @ 200 mls/hr IV Q6H [facility] Last Admin: 04/08/20 06:47 Dose: 200 mls/hr Documented by: Vancomycin HCl 2 gm/ Premix 400 mls @ 200 mls/hr IV Q24H [facility] Insulin Aspart (Novolog) 0 unit SUBCUT TIDAC [facility]; Protocol Last Admin: 04/08/20 08:29 Dose: 2 units Documented by: Lorazepam (Ativan) 0 mg IVPUSH Q4H PRN; Protocol PRN Reason: CIWAA Metoprolol Succinate (Toprol Xl) 100 mg PO DAILY [facility] Last Admin: 04/08/20 08:30 Dose: 100 mg Documented by: Morphine Sulfate (Morphine) 2 mg IVPUSH Q2H PRN PRN Reason: Pain (severe 7-10) Ondansetron HCl (Zofran) 4 mg IVPUSH Q4H PRN PRN Reason: Nausea Oxycodone HCl (Oxycodone) 10 mg PO Q4H PRN PRN Reason: Pain (moderate 4-6) Last Admin: 04/07/20 21:27 Dose: 10 mg Documented by: Rivaroxaban (Xarelto) 20 mg PO WITHDINNER [facility] Last Admin: 04/07/20 17:13 Dose: 20 mg Documented by: Sodium Chloride (Saline Flush) 2.5 ml FLUSH ASDIRECTED PRN PRN Reason: Keep Vein Open Last Admin: 04/05/20 20:23 Dose: 2.5 ml Documented by: Thiamine HCl (Vitamin B-1) 100 mg PO BEDTIME [facility] Last Admin: 04/07/20 21:00 Dose: 100 mg Documented by: Vancomycin HCl (Pharmacy To Dose - Vancomycin) 1 dose .XX ASDIRECTED [facility] Discontinued Medications Acetaminophen (Tylenol Extra Strength) 1,000 mg PO ONETIME ONE Stop: 04/04/20 08:51 Last Admin: 04/04/20 09:42 Dose: 1,000 mg Documented by: Amiodarone HCl (Cordarone) 200 mg PO DAILY [facility] Last Admin: 04/05/20 09:45 Dose: 200 mg Documented by: Cefazolin Sodium/Dextrose 2 gm (/ Premix) 50 mls @ 100 mls/hr IV ONETIME ONE Stop: 04/04/20 09:18 Last Admin: 04/04/20 09:45 Dose: 100 mls/hr Documented by: Lactated Ringer's (Ringers, Lactated) 1,000 mls @ 999 mls/hr IV .BOLUS ONE Stop: 04/04/20 10:20 Last Admin: 04/04/20 09:45 Dose: 999 mls/hr Documented by: Vancomycin HCl 2 gm/ Premix 400 mls @ 200 mls/hr IV NOW ONE Stop: 04/04/20 12:29 Last Admin: 04/04/20 12:59 Dose: 200 mls/hr Documented by: Lactated Ringer's (Ringers, Lactated) 1,000 mls @ 125 mls/hr IV Q8H [facility] Last Admin: 04/06/20 07:22 Dose: 125 mls/hr Documented by: Piperacillin Sod/Tazobactam (Sod 3.375 gm/ Sodium Chloride) 100 mls @ 200 mls/hr IV Q6H [facility] Last Admin: 04/04/20 14:08 Dose: Not Given Documented by: Vancomycin HCl 2 gm/ Premix 400 mls @ 200 mls/hr IV Q12H [facility] Last Admin: 04/07/20 21:18 Dose: 200 mls/hr Documented by: Piperacillin Sod/Tazobactam (Sod 3.375 gm/ Sodium Chloride) 100 mls @ 200 mls/hr IV Q6H [facility] Last Admin: 04/05/20 11:56 Dose: 200 mls/hr Documented by: Magnesium Sulfate (Magnesium Sulfate In Water Premix) 2 gm in 50 mls @ 50 mls/hr IV ONETIME ONE Stop: 04/06/20 09:59 Last Admin: 04/06/20 09:49 Dose: 50 mls/hr Documented by: Iopamidol (Isovue Multipack-370 (76%)) 100 ml IVPUSH ONETIME STA Stop: 04/04/20 19:07 Last Admin: 04/04/20 19:07 Dose: 100 ml Documented by: Oxycodone HCl (Oxycodone) 10 mg PO ONETIME ONE Stop: 04/04/20 08:51 Last Admin: 04/04/20 09:42 Dose: 10 mg Documented by: Oxycodone HCl (Oxycodone) 5 mg PO Q4H PRN PRN Reason: Pain (moderate 4-6) Sodium Chloride (Saline Flush) 10 ml FLUSH ASDIRECTED PRN PRN Reason: Keep Vein Open Last Admin: 04/04/20 09:51 Dose: 10 ml Documented by: Sodium Chloride (Saline Flush) 2.5 ml FLUSH ASDIRECTED PRN PRN Reason: Keep Vein Open Last Admin: 04/04/20 09:51 Dose: 2.5 ml Documented by: Vancomycin HCl (Pharmacy To Dose - Vancomycin) 1 dose .XX ONETIME ONE Stop: 04/04/20 08:50 Last Admin: 04/05/20 02:40 Dose: Not Given Documented by: - Exam General: Alert, Oriented HEENT: Pupils Equal Neck: Supple Lungs: Clear to Auscultation, Normal Respiratory Effort Cardiovascular: Regular Rate, Regular Rhythm GI/Abdominal Exam: Soft, Non-Tender, No Distention Extremities: Non-Tender, No Pedal Edema Skin: Rash (erythema of left elbow stable, no effusion, no drainage, right lower leg erythema from ankle to knee stable) Sepsis Event Note - Evaluation Sepsis Screening Result: No Definite Risk - Focused Exam Vital Signs: Vital Signs Temp Pulse Pulse Resp BP BP Pulse Ox 04/08/20 08:30 80 170/94 H 04/08/20 04:33 36.1 C 62 16 137/61 96 04/07/20 23:35 36.2 C 70 16 148/99 H 94 L - Problem List Review Problem List Initiated/Reviewed/Updated: Yes - My Orders Last 24 Hours: My Active Orders 04/09/20 05:11 BASIC METABOLIC PANEL,BMP [CHEM] AM CBC WITH AUTO DIFF [HEME] AM - Plan Plan:: 59 yo male admtted with leg and elbow cellulitis. Will continue vancomycin and zosyn. Likely discharge home tomorrow.
[2020-04-08] MEDS: Vancomycin/Water for INJ (PEG) 2 GM in Premix Bag 1 BAG IV SCH (10:08)
[2020-04-08] MEDS: oxyCODONE 5 MG Tab PO PRN ×2 (16:13→20:50)
[2020-04-08] MEDS: Rivaroxaban 10 MG Tab PO SCH (17:59)
[2020-04-08] MEDS ORDERED: Vancomycin/Water for INJ (PEG) 2 GM in Premix Bag 1 BAG IV SCH (20:00)
[2020-04-08] MEDS: Folic Acid 1 MG Tab PO SCH (20:50)
[2020-04-08] MEDS: Thiamine 100 MG Tab PO SCH (20:50)
[2020-04-09] MEDS: Piperacillin/Tazobactam 3.375 GM in Sodium Chloride 0.9% 100 ML IV SCH ×2 (00:16→05:55)
[2020-04-09 06:44] LABS: CARBON DIOXIDE,CO2 28.7 mmol/L (21.0-32.0); POTASSIUM,K 3.7 mmol/L (3.5-5.1)
[2020-04-09] MEDS: Metoprolol Succinate 100 MG Tab.ER PO SCH (08:01)
[2020-04-09] MEDS: atorvaSTATin 20 MG Tab PO SCH (08:01)
[2020-04-09] MEDS: Amiodarone 200 MG Tab PO SCH (08:02)
[2020-04-09] MEDS: Insulin Aspart 100 Units/ML 3 ML Pen SUBCUT SCH (08:04)
--- NOTE | 2020-04-09 14:40 | PCM.DCSUM1 ---
<Jl Gonzales - Last Filed: 04/09/20 14:41> Discharge Summary - Hospital Course Free Text/Narrative:: 59-year-old male admitted for right leg and left arm cellulitis. PMH includes HTN, HLD, diabetes type 2 atrial fibrillation post ablation and chronic anticoagulation. Patient states that he suddenly started had redness and pain to the back of his right leg a;fern with generalized malaise chills no overt fevers and loss of appetite. Patient did visit a walk in [facility] at which time he was pr escribed doxycycline which di dnot provide relief. Patient does give a history of many skin lesions in the past which he "picks" with his fingernails. Patient was treated with IV antibiotics and was admitted for 5 days. Patient discharged home with oral Bactrim. - Discharge Data Discharge Date: 04/09/20 Discharge Disposition: Home, Self-Care 01 Condition: Good - Referral to Home Health Primary Care Physician: PCP None - Discharge Plan Prescriptions/Med Rec: Sulfamethoxazole/Trimethoprim [Septra DS] 2 each PO BID 5 Days #20 tab Home Medications: Home Meds Amiodarone [Cordarone] 100 mg PO DAILY 04/04/20 [History] Chlorthalidone 25 mg PO DAILY 04/04/20 [History] Doxycycline Hyclate 100 mg PO BID 04/04/20 [History] Metoprolol Succinate 100 mg PO DAILY 04/04/20 [History] Rivaroxaban [Xarelto] 20 mg PO DAILY 04/04/20 [History] atorvaSTATin [Lipitor] 1 tab PO DAILY 04/04/20 [History] lisinopriL [Lisinopril] 40 mg PO DAILY 04/04/20 [History] metFORMIN HCl [Metformin HCl] 1,000 mg PO BIDMEALS 04/04/20 [History] Sulfamethoxazole/Trimethoprim [Septra DS] 2 each PO BID 5 Days #20 tab 04/09/20 [Rx] Patient Handouts: Sulfasalazine tablets, Cellulitis, Adult, [id number] Referrals: Jennifer Quinn NP [Nurse Practitioner] - 04/19/20 2:30 pm - Discharge Summary/Plan Comment DC Time >30 min.: Yes - General Info Date of Service: 04/09/20 Subjective Update: Patient states that his leg feels much better and that he is ready to go home. Patient denies leg pain, fever, chills, nausea, vomiting. - Review of Systems General: Denies: Fever, Fatigue, Chills Pulmonary: Denies: Shortness of Breath, Pleuritic Chest Pain, Cough Cardiovascular: Denies: Chest Pain, Palpitations, Dyspnea on Exertion Gastrointestinal: Denies: Abdominal Pain, Constipation, Decreased Appetite, Diarrhea Musculoskeletal: Denies: Leg Pain, Foot Pain Neurological: Denies: Confusion, Dizziness, Headache - Patient Data Vitals - Most Recent: Last Vital Signs Temp 96.8 F L 04/09/20 07:55 Pulse 54 L 04/09/20 08:01 Resp 18 04/09/20 07:55 BP 128/60 04/09/20 08:01 Pulse Ox 92 L 04/09/20 07:55 Weight - Most Recent: 133.764 kg I&O - Last 24 hours: Intake & Output 04/08/20 04/09/20 04/09/20 22:59 06:59 14:59 Intake Total 1200 980 Output Total 860 Balance 1200 120 Lab Results - Last 24 hrs: Laboratory Results - last 24 hr 04/08/20 04/09/20 04/09/20 Range/Units 17:22 05:53 05:53 WBC 8.60 (4.0-11.0) K/uL RBC 3.99 L (4.50-5.90) M/uL Hgb 12.4 L (13.0-17.0) g/dL Hct 37.3 L (38.0-50.0) % MCV 93.5 (80.0-98.0) fL MCH 31.1 (27.0-32.0) pg MCHC 33.2 (31.0-37.0) g/dL RDW Std Deviation 43.6 (28.0-62.0) fl RDW Coeff of Hilda 13 (11.0-15.0) % Plt Count 177 (150-400) K/uL MPV 9.80 (7.40-12.00) fL Neut % (Auto) 78.1 (48.0-80.0) % Lymph % (Auto) 14.9 L (16.0-40.0) % [place] % (Auto) 5.6 (0.0-15.0) % Eos % (Auto) 1.2 (0.0-7.0) % Baso % (Auto) 0.2 (0.0-1.5) % Neut # (Auto) 6.7 H (1.4-5.7) K/uL Lymph # (Auto) 1.3 (0.6-2.4) K/uL [place] # (Auto) 0.5 (0.0-0.8) K/uL Eos # (Auto) 0.1 (0.0-0.7) K/uL Baso # (Auto) 0.0 (0.0-0.1) K/uL Nucleated RBC % 0.0 /100WBC Nucleated RBCs # 0 K/uL Sodium 141 (136-148) mmol/L Potassium 3.7 (3.5-5.1) mmol/L Chloride 105 (98-107) mmol/L Carbon Dioxide 28.7 (21.0-32.0) mmol/L BUN 21 H (7.0-18.0) mg/dL Creatinine 1.3 (0.8-1.3) mg/dL Est Cr Clr Drug Dosing 65.50 mL/min Estimated GFR (MDRD) 56.1 ml/min Glucose 217 H (74-106) mg/dL POC Glucose 173 H (60-110) mg/dL Calcium 8.6 (8.5-10.1) mg/dL 04/09/20 Range/Units 06:51 WBC (4.0-11.0) K/uL RBC (4.50-5.90) M/uL Hgb (13.0-17.0) g/dL Hct (38.0-50.0) % MCV (80.0-98.0) fL MCH (27.0-32.0) pg MCHC (31.0-37.0) g/dL RDW Std Deviation (28.0-62.0) fl RDW Coeff of Hilda (11.0-15.0) % Plt Count (150-400) K/uL MPV (7.40-12.00) fL Neut % (Auto) (48.0-80.0) % Lymph % (Auto) (16.0-40.0) % [place] % (Auto) (0.0-15.0) % Eos % (Auto) (0.0-7.0) % Baso % (Auto) (0.0-1.5) % Neut # (Auto) (1.4-5.7) K/uL Lymph # (Auto) (0.6-2.4) K/uL [place] # (Auto) (0.0-0.8) K/uL Eos # (Auto) (0.0-0.7) K/uL Baso # (Auto) (0.0-0.1) K/uL Nucleated RBC % /100WBC Nucleated RBCs # K/uL Sodium (136-148) mmol/L Potassium (3.5-5.1) mmol/L Chloride (98-107) mmol/L Carbon Dioxide (21.0-32.0) mmol/L BUN (7.0-18.0) mg/dL Creatinine (0.8-1.3) mg/dL Est Cr Clr Drug Dosing mL/min Estimated GFR (MDRD) ml/min Glucose (74-106) mg/dL POC Glucose 216 H (60-110) mg/dL Calcium (8.5-10.1) mg/dL JAMIE Results - Last 24 hrs: Microbiology 04/04/20 08:50 Aerobic Blood Culture - Final Blood - Venous - Lab Draw NO GROWTH AFTER 5 DAYS Anaerobic Blood Culture - Final NO GROWTH AFTER 5 DAYS 04/04/20 08:30 Aerobic Blood Culture - Final Blood - Venous NO GROWTH AFTER 5 DAYS Anaerobic Blood Culture - Final NO GROWTH AFTER 5 DAYS Med Orders - Current: Current Medications Discontinued Medications Acetaminophen (Tylenol Extra Strength) 1,000 mg PO ONETIME ONE Stop: 04/04/20 08:51 Last Admin: 04/04/20 09:42 Dose: 1,000 mg Documented by: Acetaminophen (Tylenol) 650 mg PO Q4H PRN PRN Reason: Pain (Mild 1-3)/fever Last Admin: 04/04/20 21:32 Dose: 650 mg Documented by: Amiodarone HCl (Cordarone) 200 mg PO DAILY [facility] Last Admin: 04/05/20 09:45 Dose: 200 mg Documented by: Amiodarone HCl (Cordarone) 100 mg PO DAILY [facility] Last Admin: 04/09/20 08:02 Dose: 100 mg Documented by: Atorvastatin Calcium (Lipitor) 20 mg PO DAILY [facility] Last Admin: 04/09/20 08:01 Dose: 20 mg Documented by: Dextrose/Water (Dextrose 50% In Water) 50 ml IV ASDIRECTED PRN PRN Reason: Hypoglycemia Docusate Sodium (Colace) 100 mg PO BID PRN PRN Reason: Constipation Folic Acid (Folic Acid) 1 mg PO BEDTIME [facility] Last Admin: 04/08/20 20:50 Dose: 1 mg Documented by: Glucagon (Glucagen) 1 mg IM ASDIRECTED PRN PRN Reason: Hypoglycemia Cefazolin Sodium/Dextrose 2 gm (/ Premix) 50 mls @ 100 mls/hr IV ONETIME ONE Stop: 04/04/20 09:18 Last Admin: 04/04/20 09:45 Dose: 100 mls/hr Documented by: Lactated Ringer's (Ringers, Lactated) 1,000 mls @ 999 mls/hr IV .BOLUS ONE Stop: 04/04/20 10:20 Last Admin: 04/04/20 09:45 Dose: 999 mls/hr Documented by: Vancomycin HCl 2 gm/ Premix 400 mls @ 200 mls/hr IV NOW ONE Stop: 04/04/20 12:29 Last Admin: 04/04/20 12:59 Dose: 200 mls/hr Documented by: Lactated Ringer's (Ringers, Lactated) 1,000 mls @ 125 mls/hr IV Q8H [facility] Last Admin: 04/06/20 07:22 Dose: 125 mls/hr Documented by: Piperacillin Sod/Tazobactam (Sod 3.375 gm/ Sodium Chloride) 100 mls @ 200 mls/hr IV Q6H [facility] Last Admin: 04/04/20 14:08 Dose: Not Given Documented by: Vancomycin HCl 2 gm/ Premix 400 mls @ 200 mls/hr IV Q12H [facility] Last Admin: 04/08/20 10:08 Dose: Not Given Documented by: Piperacillin Sod/Tazobactam (Sod 3.375 gm/ Sodium Chloride) 100 mls @ 200 mls/hr IV Q6H [facility] Last Admin: 04/05/20 11:56 Dose: 200 mls/hr Documented by: Piperacillin Sod/Tazobactam (Sod 3.375 gm/ Sodium Chloride) 100 mls @ 200 mls/hr IV Q6H [facility] Last Admin: 04/09/20 05:55 Dose: 200 mls/hr Documented by: Magnesium Sulfate (Magnesium Sulfate In Water Premix) 2 gm in 50 mls @ 50 mls/hr IV ONETIME ONE Stop: 04/06/20 09:59 Last Admin: 04/06/20 09:49 Dose: 50 mls/hr Documented by: Vancomycin HCl 2 gm/ Premix 400 mls @ 200 mls/hr IV Q24H [facility] Last Admin: 04/08/20 19:59 Dose: 200 mls/hr Documented by: Insulin Aspart (Novolog) 0 unit SUBCUT TIDAC [facility]; Protocol Last Admin: 04/09/20 08:04 Dose: 4 units Documented by: Iopamidol (Isovue Multipack-370 (76%)) 100 ml IVPUSH ONETIME STA Stop: 04/04/20 19:07 Last Admin: 04/04/20 19:07 Dose: 100 ml Documented by: Lorazepam (Ativan) 0 mg IVPUSH Q4H PRN; Protocol PRN Reason: CIWAA Metoprolol Succinate (Toprol Xl) 100 mg PO DAILY [facility] Last Admin: 04/09/20 08:01 Dose: 100 mg Documented by: Morphine Sulfate (Morphine) 2 mg IVPUSH Q2H PRN PRN Reason: Pain (severe 7-10) Ondansetron HCl (Zofran) 4 mg IVPUSH Q4H PRN PRN Reason: Nausea Oxycodone HCl (Oxycodone) 10 mg PO ONETIME ONE Stop: 04/04/20 08:51 Last Admin: 04/04/20 09:42 Dose: 10 mg Documented by: Oxycodone HCl (Oxycodone) 5 mg PO Q4H PRN PRN Reason: Pain (moderate 4-6) Oxycodone HCl (Oxycodone) 10 mg PO Q4H PRN PRN Reason: Pain (moderate 4-6) Last Admin: 04/08/20 20:50 Dose: 10 mg Documented by: [facility] Last Admin: 04/08/20 17:59 Dose: 20 mg Documented by: Sodium Chloride (Saline Flush) 10 ml FLUSH ASDIRECTED PRN PRN Reason: Keep Vein Open Last Admin: 04/04/20 09:51 Dose: 10 ml Documented by: Sodium Chloride (Saline Flush) 2.5 ml FLUSH ASDIRECTED PRN PRN Reason: Keep Vein Open Last Admin: 04/04/20 09:51 Dose: 2.5 ml Documented by: Sodium Chloride (Saline Flush) 2.5 ml FLUSH ASDIRECTED PRN PRN Reason: Keep Vein Open Last Admin: 04/05/20 20:23 Dose: 2.5 ml Documented by: Thiamine HCl (Vitamin B-1) 100 mg PO BEDTIME [facility] Last Admin: 04/08/20 20:50 Dose: 100 mg Documented by: Vancomycin HCl (Pharmacy To Dose - Vancomycin) 1 dose .XX ONETIME ONE Stop: 04/04/20 08:50 Last Admin: 04/05/20 02:40 Dose: Not Given Documented by: Vancomycin HCl (Pharmacy To Dose - Vancomycin) 1 dose .XX ASDIRECTED [facility] - Exam General: Reports: Alert, Oriented Lungs: Reports: Clear to Auscultation, Normal Respiratory Effort Cardiovascular: Reports: Regular Rate, Regular Rhythm GI/Abdominal Exam: Normal Bowel Sounds, Soft, Non-Tender Extremities: Increased Warmth (right lower extremity), Redness (right lower extremity) Neurological: Reports: Normal Speech <Jamie Fernández - Last Filed: 04/10/20 18:02> Discharge Summary - Referral to Home Health Primary Care Physician: PCP None - Patient Data Vitals - Most Recent: Last Vital Signs Temp 36.0 C L 04/09/20 07:55 Pulse 54 L 04/09/20 08:01 Resp 18 04/09/20 07:55 BP 128/60 04/09/20 08:01 Pulse Ox 92 L 04/09/20 07:55 Med Orders - Current: Current Medications Discontinued Medications Acetaminophen (Tylenol Extra Strength) 1,000 mg PO ONETIME ONE Stop: 04/04/20 08:51 Last Admin: 04/04/20 09:42 Dose: 1,000 mg Documented by: Acetaminophen (Tylenol) 650 mg PO Q4H PRN PRN Reason: Pain (Mild 1-3)/fever Last Admin: 04/04/20 21:32 Dose: 650 mg Documented by: Amiodarone HCl (Cordarone) 200 mg PO DAILY [facility] Last Admin: 04/05/20 09:45 Dose: 200 mg Documented by: Amiodarone HCl (Cordarone) 100 mg PO DAILY [facility] Last Admin: 04/09/20 08:02 Dose: 100 mg Documented by: Atorvastatin Calcium (Lipitor) 20 mg PO DAILY [facility] Last Admin: 04/09/20 08:01 Dose: 20 mg Documented by: Dextrose/Water (Dextrose 50% In Water) 50 ml IV ASDIRECTED PRN PRN Reason: Hypoglycemia Docusate Sodium (Colace) 100 mg PO BID PRN PRN Reason: Constipation Folic Acid (Folic Acid) 1 mg PO BEDTIME [facility] Last Admin: 04/08/20 20:50 Dose: 1 mg Documented by: Glucagon (Glucagen) 1 mg IM ASDIRECTED PRN PRN Reason: Hypoglycemia Cefazolin Sodium/Dextrose 2 gm (/ Premix) 50 mls @ 100 mls/hr IV ONETIME ONE Stop: 04/04/20 09:18 Last Admin: 04/04/20 09:45 Dose: 100 mls/hr Documented by: Lactated Ringer's (Ringers, Lactated) 1,000 mls @ 999 mls/hr IV .BOLUS ONE Stop: 04/04/20 10:20 Last Admin: 04/04/20 09:45 Dose: 999 mls/hr Documented by: Vancomycin HCl 2 gm/ Premix 400 mls @ 200 mls/hr IV NOW ONE Stop: 04/04/20 12:29 Last Admin: 04/04/20 12:59 Dose: 200 mls/hr Documented by: Lactated Ringer's (Ringers, Lactated) 1,000 mls @ 125 mls/hr IV Q8H [facility] Last Admin: 04/06/20 07:22 Dose: 125 mls/hr Documented by: Piperacillin Sod/Tazobactam (Sod 3.375 gm/ Sodium Chloride) 100 mls @ 200 mls/hr IV Q6H [facility] Last Admin: 04/04/20 14:08 Dose: Not Given Documented by: Vancomycin HCl 2 gm/ Premix 400 mls @ 200 mls/hr IV Q12H [facility] Last Admin: 04/08/20 10:08 Dose: Not Given Documented by: Piperacillin Sod/Tazobactam (Sod 3.375 gm/ Sodium Chloride) 100 mls @ 200 mls/hr IV Q6H [facility] Last Admin: 04/05/20 11:56 Dose: 200 mls/hr Documented by: Piperacillin Sod/Tazobactam (Sod 3.375 gm/ Sodium Chloride) 100 mls @ 200 mls/hr IV Q6H [facility] Last Admin: 04/09/20 05:55 Dose: 200 mls/hr Documented by: Magnesium Sulfate (Magnesium Sulfate In Water Premix) 2 gm in 50 mls @ 50 mls/hr IV ONETIME ONE Stop: 04/06/20 09:59 Last Admin: 04/06/20 09:49 Dose: 50 mls/hr Documented by: Vancomycin HCl 2 gm/ Premix 400 mls @ 200 mls/hr IV Q24H [facility] Last Admin: 04/08/20 19:59 Dose: 200 mls/hr Documented by: Insulin Aspart (Novolog) [facility]; Protocol Last Admin: 04/09/20 08:04 Dose: 4 units Documented by: Iopamidol (Isovue Multipack-370 (76%)) 100 ml IVPUSH ONETIME STA Stop: 04/04/20 19:07 Last Admin: 04/04/20 19:07 Dose: 100 ml Documented by: Lorazepam (Ativan) 0 mg IVPUSH Q4H PRN; Protocol PRN Reason: CIWAA Metoprolol Succinate (Toprol Xl) 100 mg PO DAILY [facility] Last Admin: 04/09/20 08:01 Dose: 100 mg Documented by: Morphine Sulfate (Morphine) 2 mg IVPUSH Q2H PRN PRN Reason: Pain (severe 7-10) Ondansetron HCl (Zofran) 4 mg IVPUSH Q4H PRN PRN Reason: Nausea Oxycodone HCl (Oxycodone) 10 mg PO ONETIME ONE Stop: 04/04/20 08:51 Last Admin: 04/04/20 09:42 Dose: 10 mg Documented by: Oxycodone HCl (Oxycodone) 5 mg PO Q4H PRN PRN Reason: Pain (moderate 4-6) Oxycodone HCl (Oxycodone) 10 mg PO Q4H PRN PRN Reason: Pain (moderate 4-6) Last Admin: 04/08/20 20:50 Dose: 10 mg Documented by: [facility] Last Admin: 04/08/20 17:59 Dose: 20 mg Documented by: Sodium Chloride (Saline Flush) 10 ml FLUSH ASDIRECTED PRN PRN Reason: Keep Vein Open Last Admin: 04/04/20 09:51 Dose: 10 ml Documented by: Sodium Chloride (Saline Flush) 2.5 ml FLUSH ASDIRECTED PRN PRN Reason: Keep Vein Open Last Admin: 04/04/20 09:51 Dose: 2.5 ml Documented by: Sodium Chloride (Saline Flush) 2.5 ml FLUSH ASDIRECTED PRN PRN Reason: Keep Vein Open Last Admin: 04/05/20 20:23 Dose: 2.5 ml Documented by: Thiamine HCl (Vitamin B-1) 100 mg PO BEDTIME [facility]END[facility] Last Admin: 04/08/20 20:50 Dose: 100 mg Documented by: Vancomycin HCl (Pharmacy To Dose - Vancomycin) 1 dose .XX ONETIME ONE Stop: 04/04/20 08:50 Last Admin: 04/05/20 02:40 Dose: Not Given Documented by: Vancomycin HCl (Pharmacy To Dose - Vancomycin) 1 dose .XX ASDIRECTED BRENDAN - Free Text/Narrative Note: I have seen and evaluated the patient. I have discussed findings and treatment plan with resident. I agree with the assessment and plan in the following note.
--- NOTE | 2020-04-10 10:00 | ECHO ---
EXAM DATE: 04/04/20 PATIENT'S AGE: 59 The ECHO report has been scanned into [facility] and can be seen in this patient's EMR (Electronic Medical Record) under the REPORTS section. The report has also been scanned into PACS. BINH
== END 2020-04-09 11:49 | disposition home or self-care (01) | DRG 383 ==
LOC: MW.ED 07:42 → MW.MS 11:15 → UNDOADMIN 11:15
PROVIDERS: ADMIT Student in an Organized Health Care Education/Training Program; ATTEND Student in an Organized Health Care Education/Training Program
DX: L03.115 Cellulitis of right lower limb (principal); L03.114 Cellulitis of left upper limb; N17.9 Acute kidney failure, unspecified; I10 Essential (primary) hypertension; E78.5 Hyperlipidemia, unspecified; E11.9 Type 2 diabetes mellitus without complications; I48.91 Unspecified atrial fibrillation; H26.9 Unspecified cataract; M19.90 Unspecified osteoarthritis, unspecified site; E66.9 Obesity, unspecified; F17.210 Nicotine dependence, cigarettes, uncomplicated; Z72.89 Other problems related to lifestyle; Z79.01 Long term (current) use of anticoagulants; Z79.899 Other long term (current) drug therapy; Z79.84 Long term (current) use of oral hypoglycemic drugs; Z87.01 Personal history of pneumonia (recurrent); Z68.41 Body mass index [BMI] 40.0-44.9, adult
CPT/HCPCS: 36415; 73070-26-LT; 73070-LT; 73701-26-RT; 73701-RT; 80048; 80053; 80202; 82962; 83036; 83605; 83735; 84484; 85025; 85610; 87040; 93306; 93971-26-RT; 93971-RT; 96365; 99222; 99231; 99232; 99239; 99284; 99284-25; A9270-GY; J0690; J1815-GY; J2543; J3370; J3475; J7050; J7120; Q9967; U0002

== ENCOUNTER 2020-12-12 07:07 | Day surgery (SDC) | payer BC ==
[~2020-12-12 07:07] MED LIST: Lactated Ringers 1,000 ML IV SCH
--- NOTE | 2020-12-12 07:26 | PCM.PREANE ---
Preanesthetic Assessment - Anesthesia/Transfusion/Family Hx Anesthesia History: Prior Anesthesia Without Reaction Transfusion History: Prior Transfusion Without Reaction Intubation History: Unknown - Review of Systems General: No Symptoms Pulmonary: No Symptoms Cardiovascular: No Symptoms Gastrointestinal: No Symptoms Neurological: No Symptoms Other: Reports: Diabetes - Physical Assessment NPO Status Date: 12/12/20 NPO Status Time: 00:00 Height: 5 ft 11 in Weight: 306 lb ASA Class: 3 Mental Status: Alert & Oriented x3 Airway Class: Mallampati = 2 Dentition: Reports: Normal Dentition Thyro-Mental Finger Breadths: 3 Mouth Opening Finger Breadths: 3 ROM/Head Extension: Full Lungs: Clear to Auscultation, Normal Respiratory Effort Cardiovascular: Irregular Rhythm (Afib) - Allergies Allergies/Adverse Reactions: Allergies Allergy/AdvReac Type Severity Reaction Status Date / Time No Known Allergies Allergy Verified 12/06/20 08:13 - Anesthesia Plan Beta Mary: Metoprolol - Acknowledgements Anesthesia Type Planned: General Anesthesia Pt an Appropriate Candidate for the Planned Anesthesia: Yes Alternatives and Risks of Anesthesia Discussed w Pt/Guardian: Yes Pt/Guardian Understands and Agrees with Anesthesia Plan: Yes PreAnesthesia Questionnaire HEENT History: Reports: Cataract Cardiovascular History: Reports: Afib, High Cholesterol, Hypertension Respiratory History: Reports: None Gastrointestinal History: Reports: Hepatitis, Other (See Below) Other Gastrointestinal History: occasional heartburn, "hepatitis in 5th grade" Genitourinary History: Reports: None Musculoskeletal History: Reports: Osteoarthritis Other Musculoskeletal History: chronic marisabel knee pain Neurological History: Reports: Concussion Psychiatric History: Reports: Anxiety, Depression Endocrine/Metabolic History: Reports: Diabetes, Type II, Obesity/BMI 30+ Hematologic History: Reports: Anticoagulation Therapy, Blood Transfusion(s), Other (See Below) Other Hematologic History: states had blood transfusion as a baby Immunologic History: Reports: None Oncologic (Cancer) History: Reports: None Dermatologic History: Reports: Cellulitis, Other (See Below) Other Dermatologic History: was in the hospital for 6 days in Mar, 2020 with staph infection to right lower leg - Infectious Disease History Infectious Disease History: Reports: Chicken Pox, Influenza - Past Surgical History Head Surgeries/Procedures: Reports: None HEENT Surgical History: Reports: Cataract Surgery, Oral Surgery Cardiovascular Surgical History: Reports: None Respiratory Surgical History: Reports: None GI Surgical History: Reports: None Male Surgical History: Reports: None Endocrine Surgical History: Reports: None Neurological Surgical History: Reports: None Musculoskeletal Surgical History: Reports: None Oncologic Surgical History: Reports: Other (See Below) Other Oncologic Surgeries/Procedures: excision of lymph node from neck Dermatological Surgical History: Reports: None - SUBSTANCE USE Tobacco Use Status *Q: Current Every Day Tobacco User Tobacco Use Within Last Twelve Months: Cigarettes - HOME MEDS Home Medications: Home Meds Chlorthalidone 25 mg PO DAILY 04/04/20 [History] Metoprolol Succinate 100 mg PO DAILY 04/04/20 [History] Rivaroxaban [Xarelto] 20 mg PO DAILY 04/04/20 [History] atorvaSTATin [Lipitor] 10 mg PO DAILY 04/04/20 [History] lisinopriL [Lisinopril] 40 mg PO DAILY 04/04/20 [History] metFORMIN HCl [Metformin HCl] 1,000 mg PO BIDMEALS 04/04/20 [History] Cholecalciferol (Vitamin D3) [Vitamin D3] 1,000 units PO BID 12/06/20 [History] ClonazePAM [KlonoPIN] 0.5 mg PO BID 12/06/20 [History] Fish Oil/Sorrento-3 Fatty Acids [Fish Oil 1,000 MG] 1,000 mg PO DAILY 12/06/20 [Hi story] Vitamin B Complex 1 tab PO DAILY 12/06/20 [History] - CURRENT (IN HOUSE) MEDS Current Meds: Current Medications Lactated Ringer's (Ringers, Lactated) 1,000 mls @ 125 mls/hr IV ASD[facility]
[2020-12-12] MEDS ORDERED: Lidocaine 2% 5 ML SDV ONE (08:16)
[2020-12-12] MEDS ORDERED: Propofol 200 MG/20 ML SDV ONE (08:16)
--- NOTE | 2020-12-12 09:03 | PCM.OPNOTE ---
- General Post-Op/Procedure Note Date of Surgery/Procedure: 12/12/20 Operative Procedure(s): Colonoscopy and polypectomies Findings: pandiverticulosis colon polyps dictation number [id number] Pre Op Diagnosis: Postive cologuard Post-Op Diagnosis: pandiverticulosis. colon polyps Primary Surgeon: Dylan Fernández Pathology: colon polyps Complications: None Condition: Good
--- NOTE | 2020-12-12 09:17 | PCM48HPAN ---
Post Anesthesia Note - EVALUATION WITHIN 48HRS OF ANESTHETIC Vital Signs in Normal Range: Yes Patient Participated in Evaluation: Yes Respiratory Function Stable: Yes Airway Patent: Yes Cardiovascular Function Stable: Yes Hydration Status Stable: Yes Pain Control Satisfactory: Yes Nausea and Vomiting Control Satisfactory: Yes Mental Status Recovered: Yes Vital Signs: Last Vital Signs Temp 97.5 F 12/12/20 09:09 Pulse 59 L 12/12/20 09:12 Resp 15 12/12/20 09:12 BP 96/57 L 12/12/20 09:12 Pulse Ox 95 12/12/20 09:12
--- NOTE | 2020-12-12 09:17 | PCM.POSTAN ---
POST ANESTHESIA ASSESSMENT - MENTAL STATUS Mental Status: Alert, Oriented - VITAL SIGNS Vital Signs: Last Vital Signs Temp 97.5 F 12/12/20 09:09 Pulse 59 L 12/12/20 09:12 Resp 15 12/12/20 09:12 BP 96/57 L 12/12/20 09:12 Pulse Ox 95 12/12/20 09:12 - RESPIRATORY Respiratory Status: Respiratory Rate WNL, Airway Patent, O2 Saturation Stable - CARDIOVASCULAR CV Status: Pulse Rate WNL, Blood Pressure Stable - GASTROINTESTINAL GI Status: No Symptoms - POST OP HYDRATION Hydration Status: Adequate & Stable
--- NOTE | 2020-12-12 14:55 | OR ---
SURGEON: DEY BARRETT MD DATE OF PROCEDURE: 12/12/2020 PREOPERATIVE DIAGNOSIS: Positive Cologuard. POSTOPERATIVE DIAGNOSES: 1. Colon polyps, two in the ascending colon at about 1 m and one in the distal sigmoid at about 15 cm. 2. Pandiverticulosis. PROCEDURES PERFORMED: 1. Colonoscopy. 2. Cold biopsy polypectomy. 3. Snare polypectomies x2. PRIMARY SURGEON: Edy Barrett MD ANESTHESIA: By the anesthesiologist. EXTENT OF THE COLONOSCOPY: To the cecum. BOWEL PREP: Very good. LIMITATIONS: None. REASON FOR PROCEDURE: The patient is a pleasant 60-year-old gentleman who had a positive Cologuard. He denies any blood in his stool. This will be his first colonoscopy. PROCEDURE IN DETAIL: Physical exam was performed. The major risks and benefits associated with the procedure were explained to the patient in detail. The patient verbalized understanding and was in agreement with the same. The patient was then connected to the appropriate monitoring devices, and IV was started. EKG, pulse oximetry, blood pressure, and capnography were monitored throughout the entire procedure. Oxygen and sedation were provided by the anesthesiologist. The patient was placed in left lateral decubitus position. Sedation was began. After adequate sedation was achieved, digital rectal exam was performed. No rectal masses or polyps were felt. Now, a well-lubricated Olympus colonoscope was inserted into the rectum and advanced under direct visualization to the level of the cecum. The cecum was identified by both visual and anatomic landmarks. Photographs were taken of the cecal cap and ileocecal valve. Scope was then slowly withdrawn in a circular fashion looking at the color, texture, anatomy, and integrity of mucosa from the cecum to the anal canal. The patient had some slight liquid stool which was suctioned and irrigated out for a good look at the mucosa. Just past the ileocecal valve in the ascending colon at about 1 m, he had a small polyp. This was removed with cold biopsy polypectomy, looked to be completely removed with good hemostasis. Just about a centimeter further out, we ran into another polyp again, slightly larger but still a small sessile polyp, looked to be potentially even hyperplastic. This was removed with cold snare polypectomy. It looked to be completely removed. There was good hemostasis. Scope was continued to be withdrawn. The patient was noted to have pandiverticulosis. He had diverticulosis throughout the entirety of his colon. The patient had another polyp at about 15 cm. This was removed with hot snare polypectomy, appeared again with good hemostasis, looked to be completely removed. Scope was retroflexed in the rectum. Some minimal internal hemorrhoids, noninflamed. Scope was completely removed and the procedure was terminated. ENDOSCOPIC DIAGNOSES: 1. Colon polyps x2, two in the ascending and one in the distal sigmoid rectal area at 15 cm. 2. Pandiverticulosis. RECOMMENDATIONS: Followup colonoscopy will depend on pathology, but most likely will need another one in five years or sooner if develops signs and symptoms such as change in bowel habits or blood in his stool. REE NORTH /[id number]
== END 2020-12-12 09:50 | disposition home or self-care (01) ==
LOC: MW.SDS 07:07
PROVIDERS: ATTEND Surgery
DX: D12.2 Benign neoplasm of ascending colon (principal); K57.30 Diverticulosis of large intestine without perforation or abscess without bleeding; I10 Essential (primary) hypertension; E11.9 Type 2 diabetes mellitus without complications; E78.00 Pure hypercholesterolemia, unspecified; F17.210 Nicotine dependence, cigarettes, uncomplicated; K42.9 Umbilical hernia without obstruction or gangrene; I48.91 Unspecified atrial fibrillation; E66.9 Obesity, unspecified; Z79.899 Other long term (current) drug therapy; Z98.890 Other specified postprocedural states; Z79.84 Long term (current) use of oral hypoglycemic drugs
CPT/HCPCS: 45380; 45385; 82947; J2704; J7120; 00811; 88305